=== PATIENT | female | born 1955 | race Caucasian/White ===

== ENCOUNTER 2019-07-15 08:37 | Outpatient (CLI) | payer MEDICARE, MEDICAID, SELFPAY ==
--- NOTE | 2019-07-15 | ECG_ITS ---
Measurements Intervals Smiley Rate: 56 P: 48 MS: 189 QRS: 4 QRSD: 92 T: 53 QT: 449 QTc: 435 Interpretive Statements SINUS BRADYCARDIA VENTRICULAR PREMATURE COMPLEXES LOW QRS VOLTAGE IN PRECORDIAL LEADS CANNOT RULE OUT SEPTAL INFARCT, AGE INDETERMINATE BASELINE ARTIFACT- II, III, AVR, AVF, V1-V2 ABNORMAL ECG Electronically Signed On 07-15-2019 9:46:40 LEGAL ARBITRATOR by Zheng Myers D.O.
[2019-07-15 09:20] LABS: Hematocrit 36.1 % (37.0-47.0); Hemoglobin 11.5 g/dL (12.0-15.0)
[2019-07-15 09:30] LABS: Hemoglobin A1C 6.7 % (<5.7)
[2019-07-15 09:32] LABS: Albumin Level 4.1 g/dL (3.5-5.1); Estimated Glomerular Filt Rate > 60; Glucose 101 mg/dL (65-105)
[2019-07-15 09:38] LABS: Urine Cotinine NEGATIVE
== END 2019-07-15 08:38 | disposition home or self-care (01) ==
LOC: ANHLAB 08:41
PROVIDERS: PCP Internal Medicine; Visit Provider Orthopaedic Surgery
DX: N18.3 Chronic kidney disease, stage 3 (moderate) (principal); E11.9 Type 2 diabetes mellitus without complications; I12.9 Hypertensive chronic kidney disease with stage 1 through stage 4 chronic kidney disease, or unspecified chronic kidney disease; E78.9 Disorder of lipoprotein metabolism, unspecified; R94.31 Abnormal electrocardiogram [ECG] [EKG]
CPT/HCPCS: 36415; 80307; 82040; 82565; 82947; 83036; 85014; 85018; 93005

== ENCOUNTER 2019-07-29 10:47 | Outpatient (CLI) | payer MEDICARE, MEDICAID, SELFPAY ==
[2019-07-29 11:20] LABS: Basophils Percent Auto 0.5 % (0.2-1.2); Eosinophils Absolute Auto 0.2 K/mm3 (0-0.3); Eosinophils Percent Auto 3.5 % (0-4.4); Hematocrit 36.5 % (37.0-47.0); Hemoglobin 11.6 g/dL (12.0-15.0); Lymphocytes Absolute Auto 1.82 K/mm3 (0.9-3.2); Lymphocytes Percent Auto 30.5 % (18.3-44.2); Mean Corpuscular HGB Conc 31.8 g/dl (32-36); Mean Corpuscular Hemoglobin 30.3 pg (26-34); Mean Corpuscular Volume 95.3 fl (80-100); Mean Platelet Volume 10.4 fl (7.4-10.4); Monocytes Absolute Auto 0.5 K/mm3 (0.1-0.6); Monocytes Percent Auto 8.7 % (2.6-8.5); Neutrophils Absolute Auto 3.4 K/mm3 (1.3-6.7); Neutrophils Percent Auto 56.8 % (45.5-73.1); Platelet Count Result 187 k/mm3 (150-375); Red Blood Count 3.83 M/mm3 (4.2-5.4); Red Cell Distribution Width 12.9 % (11.5-14.5)
[2019-07-29 12:01] LABS: Alanine Aminotransferase 23 U/L (4-35); Albumin Level 4.1 g/dL (3.5-5.1); Alkaline Phosphatase 115 U/L (38-126); Aspartate Amino Transferase 32 U/L (14-36); Bilirubin,Total 0.8 mg/dL (0.2-1.3); Blood Urea Nitrogen 16 mg/dL (7-17); Calcium 9.2 mg/dL (8.4-10.2); Carbon Dioxide 29 mmol/L (22-30); Chloride 100 mmol/L (98-107); Estimated Glomerular Filt Rate > 60; Glucose 116 mg/dL (65-105); Potassium 3.7 mmol/L (3.4-5.0); Sodium 138 mmol/L (137-145)
[2019-07-29 12:02] LABS: Add Urine Microscopic? YES; Appearance Urine Clear (Clear); Bilirubin Urine Negative (Negative); Blood Urine Negative (Negative); Color Urine Yellow (Yellow); Glucose Urine UA Negative (Negative); Ketones Urine Negative (Negative); Leukocyte Esterase Ur 2+ LEU/UL (Negative); Mucus Urine Rare /lpf; Nitrate Urine Negative (Negative); Protein Urine Negative (Negative); RBC Urine 0-2 /hpf (0-2); Specific Grav Ur 1.013 (1.001-1.035); Squamous Epithelial Cell Urine Moderate /hpf (Few); Transitional Epi Cells Urine Rare /hpf (None Seen); Urobilinogen Urine Negative mg/dL (<2.0); WBC Urine 21-30 /hpf
== END 2019-07-29 10:48 | disposition home or self-care (01) ==
LOC: ANHLAB 10:57
PROVIDERS: PCP Internal Medicine; Visit Provider Nurse Practitioner
DX: R40.20 Unspecified coma (principal)
CPT/HCPCS: 36415; 80053; 81001; 84443; 85025; 87077; 87086; 87088

== ENCOUNTER 2019-08-27 06:54 | Outpatient (CLI) | payer MEDICARE, MEDICAID, SELFPAY ==
--- NOTE | 2019-08-27 07:24 | ECHO_ITS ---
Patient Info Name: Sonam Norman Age: 64 years : 1955 Gender: Female Ht: 62 in Wt: 200 lbs BSA: 2.04 m2 HR: 63 bpm BP: 138 / 65 mmHg Technical Quality: Good Exam Date: 08/27/2019 8:23 AM Exam Location: [facility] Patient Status: Outpatient Admit Date: 08/27/2019 Staff Ordering Physician: Melany Matson Machine Boss: Alize Cazares RDCS Attending Provider: Melany Matson Referring Physician: Huyen HALL; Exam Type: CA echo doppler color flow Study Info Indications R40.20 - UNSPECIFIED COMA Complete two-dimensional, color flow and Doppler transthoracic echocardiogram is performed. Summary 1. Left ventricular chamber dimension is normal. 2. Left ventricular systolic function is normal, estimated at 60-65%. 3. The left ventricular diastolic function is abnormal. 4. E/e' 20 is elevated. 5. There is mild aortic valve sclerosis. 6. The mitral valve has moderately calcified annulus. 7. There is mild mitral valve regurgitation. 8. There is mild tricuspid valve regurgitation. 9. No pulmonary hypertension, estimated pulmonary arterial systolic pressure is 36 mmHg. Left Ventricle E/e' 20 is elevated. Left ventricular chamber dimension is normal. Left ventricular systolic function is normal, estimated at 60-65%. The left ventricular diastolic function is abnormal. Right Ventricle Right ventricular chamber dimension is normal. Right ventricular systolic function is normal. Left Atria Left atrial chamber dimension is normal. Right Atria Right atrial chamber dimension is normal. Aortic Valve The aortic valve is probable trileaflet. There is mild aortic valve sclerosis. There is no aortic valve stenosis. There is no aortic valve regurgitation. Pulmonic Valve There is no pulmonic regurgitation. Mitral Valve The mitral valve has moderately calcified annulus. There is no mitral valve stenosis. There is mild mitral valve regurgitation. Tricuspid Valve There is mild tricuspid valve regurgitation. No pulmonary hypertension, estimated pulmonary arterial systolic pressure is 36 mmHg. Pericardium/Pleural There is no pericardial effusion. Inferior Vena Cava Normal inferior vena cava with >50% collapse upon inspiration consistent with normal right atrial pressure, 5 mmHg. Aorta The aortic root size at the sinus of Valsalva is normal. Left Ventricular Outflow Tract Name Value Normal LVOT 2D LVOT Diameter 2.0 cm LVOT Doppler LVOT Peak Gradient 7 mmHg LVOT Mean Gradient 3 mmHg LVOT VTI 31 cm LVOT VTI/AV VTI Ratio 0.9 LVOT Stroke Volume 92 ml LVOT CO 5.6 l/min LVOT CI 2.8 l/min/m2 Pulmonic Valve Name Value Normal RVOT Doppler
--- NOTE | 2019-08-27 07:30 | NEURO_ITS ---
TEST: ELECTROENCEPHALOGRAM DIAGNOSIS: LOSS OF CONSCIOUSNESS PATIENT NUMBER: [id number] EEG NUMBER: [id number] RECORDING DATE: 08/27/19 CLINICAL HISTORY: Patient reports she has been having episodes of not remembering parts of her day. CONDITION OF RECORDING: Awake, drowsy and sleep EEG DESCRIPTION: Most of the EEG is done during drowsiness and sleep. During very brief periods of wakefulness low voltage beta activity is seen mixed with intermittent 6-7hz theta activity. Bilateral symmetrical sleep activity is seen during sleep. Intermittent 5-7hz theta with intermittent 2-3hz delta activity is seen. Photic stimulation produced normal drive. Nonparoxysmal. Nonfocal. Nonlateralizing IMPRESSION: Questionably abnormal record due to the presence of the bi- hemispheric theta and delta activity. Clinical correlation recommended as this tracing was done mainly in drowsiness and sleep. [facility]
--- NOTE | 2019-09-02 12:41 | WPDHOLTEREM ---
Holter/Event Monitor Holter/Event Monitor Date of procedure: 08/27/19 Procedure Type: 48 hour holter monitor Conclusion: 1. 48 hour holter monitor on 08/27/19. 2. Underlying rhythm is sinus rhythm. HR range 53-94 bpm; average HR 67 bpm. 3. There are 67 premature supraventricular complexes, 1 supraventricular couplet and 1 supraventricular triplet. No supraventricular tachycardia. 4. There are 11784 premature ventricular complexes, 75 ventricular bigeminy and 460 ventricular trigeminy. No ventricular tachycardia. 5. No sinoatrial or atrioventricular blocks. No significant pauses greater than 2 seconds. 6. No symptoms available for correlation.
== END 2019-08-27 06:55 | disposition home or self-care (01) ==
LOC: ANHNEURO 07:04
PROVIDERS: PCP Internal Medicine; Visit Provider Nurse Practitioner
DX: R40.20 Unspecified coma (principal); I34.0 Nonrheumatic mitral (valve) insufficiency; I35.1 Nonrheumatic aortic (valve) insufficiency; I36.1 Nonrheumatic tricuspid (valve) insufficiency
CPT/HCPCS: 93225; 93226; 93306; 95816

== ENCOUNTER 2019-09-24 07:22 | Outpatient (CLI) | payer MEDICARE, MEDICAID, SELFPAY ==
--- NOTE | ~2019-09-24 | NM_ITS ---
EXAMINATION: NM ronnell stress w perfusion DATE: 09/24/2019 10:14 INDICATION: Dyspnea TECHNIQUE: Rest images were obtained following intravenous administration of mCi Tc99m tetrofosmin (M yoview). The patient was infused intravenously with Lexiscan (Regadenoson). Then, mCi Tc99m tetrofosm in (Myoview) was administered intravenously, and stress images were obtained. Data was reconstructed into short axis and horizontal and vertical long axis SPECT images. Gated SPECT images were also obta ined. COMPARISON: None. FINDINGS: There is likely breast attenuation artifact along the anterior wall, relatively mild on the stress images but which significantly increases on the rest images. There is no definite reversible or fixed perfusion abnormality to suggest ischemia or infarction. There is normal left ventricular c hamber size, wall motion and ejection fraction. Left ventricular ejection fraction measures >70%. IMPRESSION: 1. Normal myocardial perfusion at rest and during stress. 2. Left ventricular ejection fraction measuring >70%. Reviewed, dictated and finalized at location A.
--- NOTE | 2019-09-24 07:33 | EST_ITS ---
Patient Info Name: Sonam Norman Age: 64 years : 1955 Gender: Female Ht: 62 in Wt: 200 lbs BSA: 2.04 m2 Exam Date: 09/24/2019 8:50 AM Exam Location: [facility] Stress Patient Status: Outpatient Admit Date: 09/24/2019 Staff Ordering Physician: Zheng Myers DO Attending Provider: Zheng Myers DO Exercise Technologist: Alize Cazares RDCS Exercise Physician: Zheng Myers DO Exam Type: CA stress ronnell w NM Study Info Indications R06.09 - Other forms of dyspnea A regadenoson stress test was performed. Summary 1. 1. Negative lexiscan stress test for ischemic ST changes by ECG criteria. 2. 2. Stable hemodynamics throughout the test. 3. 3. Nuclear scan to follow and will be reported separately. Please correlate with it. 4. 4. Patient informed of the above results. Protocol: Lexiscan Stress ECG Details Stage: REST Duration (min): 5 min : 45 sec HR (bpm): 54 SBP (mmHg): 126 DBP (mmHg): 64 Stage: REST Duration (min): 10 min : 7 sec HR (bpm): 54 SBP (mmHg): 126 DBP (mmHg): 64 Stage: STAGE 1 Duration (min): 0 min : 59 sec HR (bpm): 60 SBP (mmHg): 127 DBP (mmHg): 67 Stage: RECOVERY Duration (min): 1 min : 0 sec HR (bpm): 69 SBP (mmHg): 127 DBP (mmHg): 67 Stage: RECOVERY Duration (min): 2 min : 0 sec HR (bpm): 69 SBP (mmHg): 118 DBP (mmHg): 64 Stage: RECOVERY Duration (min): 3 min : 0 sec HR (bpm): 67 SBP (mmHg): 119 DBP (mmHg): 60 Stage: RECOVERY Duration (min): 3 min : 23 sec HR (bpm): 66 SBP (mmHg): 119 DBP (mmHg): 60 Rest HR: 54 bpm Peak HR: 70 bpm Rest Sys BP: 126 mmHg Peak Sys BP: 127 mmHg Max Pred HR: 158 bpm % Max Pred HR: 44 % Target HR: 134 bpm Max RPP: 8,890 bpm*mmHg Termination Reason: Completed protocol Cardiac Symptoms: Shortness of breath Total Time: 1 min : 0 sec Rest Poe BP: 64 mmHg Peak Poe BP: 67 mmHg Total Dose: 0.4 mg Resting ECG Sinus rhythm, PVC's, low voltage in precordial leads. Stress ECG No ST changes. Arrhythmias None. Report Signatures
== END 2019-09-24 07:23 | disposition home or self-care (01) ==
LOC: ANHCARD 07:24
PROVIDERS: PCP Internal Medicine; Visit Provider Internal Medicine Cardiovascular Disease
DX: R06.00 Dyspnea, unspecified (principal)
CPT/HCPCS: 78452; 93017; A9502; J2785

== ENCOUNTER 2019-11-07 09:09 | Outpatient (CLI) | payer MEDICARE, MEDICAID, SELFPAY ==
--- NOTE | ~2019-11-07 | MR_ITS ---
EXAMINATION: MR brain/brain stem wo con DATE: 11/07/2019 10:43 CDT INDICATION: Memory loss TECHNIQUE: Magnetic resonance imaging (MRI) of the brain and brainstem was performed without intraven ous contrast. Sequences included sagittal and axial T1-weighted SE, axial diffusion-weighted FS SE, a xial T2*-weighted GRE, axial T2-weighted FLAIR Propeller, and axial T2-weighted Propeller. Apparent d iffusion coefficient (ADC) maps were created. COMPARISON: MRI dated 03/15/2019 FINDINGS: The brain volume and ventricular system are within normal limits. The brain parenchymal si gnal intensity pattern and peters/white matter is normal and there is no evidence of hemorrhage, space occupying masses or infarctions. There are scattered mild periventricular and subcortical white matte r changes, most likely related to small vessel ischemic disease (microangiopathy). The flow signal voids of the major arterial structures about the [place] and within the el r dural venous sinuses appear grossly unremarkable and patent. The seventh and eighth cranial nerve complexes are normal. The mid sagittal image demonstrates a normal craniovertebral junction and omar us callosum. The paranasal sinuses are grossly unremarkable. IMPRESSION: 1: No acute intracranial abnormality. 2: Chronic age-related findings. Reviewed, dictated and finalized at location A.
== END 2019-11-07 09:10 | disposition home or self-care (01) ==
PROVIDERS: PCP Internal Medicine; Visit Provider Psychiatry & Neurology Neurology
DX: R41.3 Other amnesia (principal)
CPT/HCPCS: 70551

== ENCOUNTER 2019-11-09 12:32 | Outpatient (CLI) | payer MEDICARE, MEDICAID, SELFPAY ==
[2019-11-09 13:25] LABS: Hematocrit 34.1 % (37.0-47.0); Hemoglobin 11.2 g/dL (12.0-15.0); Mean Corpuscular HGB Conc 32.8 g/dl (32-36); Mean Corpuscular Hemoglobin 30.4 pg (26-34); Mean Corpuscular Volume 92.7 fl (80-100); Mean Platelet Volume 10.2 fl (7.4-10.4); Platelet Count Result 192 k/mm3 (150-375); Red Blood Count 3.68 M/mm3 (4.2-5.4); Red Cell Distribution Width 12.7 % (11.5-14.5); White Blood Count 7.5 K/mm3 (4.5-10.0)
[2019-11-09 13:40] LABS: Alanine Aminotransferase 22 U/L (4-35); Albumin Level 4.2 g/dL (3.5-5.1); Alkaline Phosphatase 106 U/L (38-126); Aspartate Amino Transferase 40 U/L (14-36); Bilirubin,Total 0.7 mg/dL (0.2-1.3); Blood Urea Nitrogen 20 mg/dL (7-17); Calcium 9.3 mg/dL (8.4-10.2); Carbon Dioxide 33 mmol/L (22-30); Chloride 97 mmol/L (98-107); Estimated Glomerular Filt Rate > 60; Glucose 120 mg/dL (65-105); Potassium 3.8 mmol/L (3.4-5.0); Sodium 136 mmol/L (137-145)
[2019-11-12 11:47] LABS: Vitamin B6 39.6 ng/mL (2.1-21.7)
[2019-11-13 11:36] LABS: Vitamin B1 76 nmol/L (8-30)
== END 2019-11-09 12:33 | disposition home or self-care (01) ==
PROVIDERS: PCP Internal Medicine; Visit Provider Psychiatry & Neurology Neurology
DX: R41.3 Other amnesia (principal)
CPT/HCPCS: 36415; 80053; 82607; 84207; 84425; 85027; 86038; 86039

== ENCOUNTER 2019-12-03 19:54 | Emergency (ER) | payer MEDICARE, MEDICAID, SELFPAY ==
--- NOTE | ~2019-12-03 | CT_ITS ---
EXAMINATION: CT brain wo con DATE: 12/03/2019 20:27 INDICATION: Head injury. TECHNIQUE: Computed tomography (CT) of the head was performed without intravenous contrast. The mA wa s adjusted according to patient size. Iterative reconstruction technique was employed. The dose-lengt h product was 605.33 mGy-cm. COMPARISON: Head CT 02/12/2019 FINDINGS: There are scattered areas of low attenuation in the cerebral white matter, which is within normal limits for the patient's age. There is no intracranial hemorrhage, acute infarction, or abnor mal intracranial mass lesion. The ventricles are normal in size. There is mild mucosal thickening in the ethmoid sinuses. The mastoid air cells are normal. The orbits are normal. There is a left frontal scalp laceration. IMPRESSION: 1. Normal aging brain. Reviewed, dictated and finalized at location A. IMPRESSION: 1. Normal aging brain.
[2019-12-03 19:56] VITALS: BP 178/53; PULSE 74; RESP 16; TEMP 36.5; O2SAT 95
--- NOTE | 2019-12-03 20:02 | ED.HEATRA ---
HPI - Head Injury General Chief complaint: Head Injury Stated complaint: fall, hit head Time Seen by Provider: 12/03/19 20:02 History of Present Illness HPI Narrative: Tripped over her own feet and fell forward striking her head on the bathroom counter. Reporting 8/10 pain in her head. Sustained laceration above the left eyebrow. No LOC. No blood thinners. Related Data Home Medications Medication Instructions Recorded Confirmed fluoxetine 10 mg capsule 10 mg PO DAILY 06/22/19 11/04/19 insulin aspart U-100 100 unit/mL 20 unit SUB-Q TID 06/22/19 11/04/19 subcutaneous solution insulin detemir U-100 100 unit/mL 100 unit SUB-Q DAILY 06/22/19 11/04/19 (3 mL) subcutaneous pen furosemide 40 mg tablet 20 mg PO QAM tablet 09/21/19 11/04/19 Allergies Allergy/AdvReac Type Severity Reaction Status Date / Time erythromycin base Allergy Unknown Unknown Verified 11/04/19 07:56 Review of Systems Review of Systems: All systems reviewed & are unremarkable except as noted in HPI and below Constitutional: Constitutional: Denies weakness ENT: Denies dizziness PMFSH Past Medical History Medical History Chronic kidney disease, stage 3 Depression Hypertension Localized osteoarthritis of left knee Other asthma Other hyperlipidemia Parkinson disease Type 2 diabetes mellitus without complication, with halfway current use of insulin pump Vitamin D deficiency, unspecified Surgical History Surgical History History of bariatric surgery History of cholecystectomy History of tubal ligation Family History Family History Sibling Hypertension Patient's brother is in good health Family history of diabetes mellitus in first degree relative Diabetes mellitus Malignant neoplasm of throat sister Mother Patient's mother is in good health Father Family history of lung cancer Other Family history of malignant neoplasm Social History Social History Smoking status: Former smoker Smoking end date: 05/19/96 Alcohol intake: never Exam Const: General: alert and ill appearing chronically Nutritional Appearance: obese Orientation/consciousness: patient oriented x3 HENMT: Other: 6 cm stelate full thickness laceration to the left eyebrow Eyes: Conjunctivae: conjunctivae normal Pupils: Equal, round and reactive pupils present EOM: EOMs intact bilaterally Resp: Effort & Inspection: normal respiratory effort Auscultation: clear to auscultation bilaterally Cardio: Rate: regular rate Rhythm: regular rhythm Neuro: General: patient oriented x3 and moves all extremities Cranial nerves: Yes CN's II-XII intact bilaterally Extrem: General: normal to inspection Course Vital Signs Vital signs: Vital Signs Temperature 36.5 C 12/03/19 19:56 Pulse Rate 74 12/03/19 19:56 Respiratory Rate 16 12/03/19 19:56 Blood Pressure 178/53 H 12/03/19 19:56 Pulse Oximetry 95 12/03/19 19:56 Temperature 36.5 C 12/03/19 19:56 Pulse Rate 71 12/03/19 21:55 Respiratory Rate 18 12/03/19 21:55 Blood Pressure 167/59 H 12/03/19 21:55 Pulse Oximetry 95 12/03/19 21:55 Procedures Laceration Laceration 1: Date: 12/03/19 Side (If applicable): left Size (cm): 6 Description: stellate Local Anesthetic: lidocaine 1% and with epi Amount of anesthesia used (mL): 7 Pre-repair: wound explored and irrigated ====== Skin Level ====== Skin layer closed with: other (Fast gut) Size (cm): 5-0 Number of sutures: 10 Technique: simple, interrupted ====== Subcutaneous Layer ====== Subcutaneous layer closed with: vicryl Size: 5-0 Number of sutures: 5 Technique: simple, interrupted
[2019-12-03] MEDS: LIDO 1%/EPINEPHRINE 1:100,000 20 ML VIAL 5 ML INFILTRATE (20:17)
[2019-12-03 21:55] VITALS: BP 167/59; PULSE 71; RESP 18; O2SAT 95
== END 2019-12-03 21:57 | disposition home or self-care (01) ==
PROVIDERS: Emergency Provider Emergency Medicine; PCP Internal Medicine
DX: S01.112A Laceration without foreign body of left eyelid and periocular area, initial encounter (principal); E11.22 Type 2 diabetes mellitus with diabetic chronic kidney disease; I13.10 Hypertensive heart and chronic kidney disease without heart failure, with stage 1 through stage 4 chronic kidney disease, or unspecified chronic kidney disease; N18.3 Chronic kidney disease, stage 3 (moderate); Z87.891 Personal history of nicotine dependence; Z79.4 Long term (current) use of insulin; Z96.41 Presence of insulin pump (external) (internal); F32.9 Major depressive disorder, single episode, unspecified; M17.12 Unilateral primary osteoarthritis, left knee; G20 Parkinson's disease; E78.49 Other hyperlipidemia; E55.9 Vitamin D deficiency, unspecified; W01.198A Fall on same level from slipping, tripping and stumbling with subsequent striking against other object, initial encounter
CPT/HCPCS: 12014; 12053; 70450; 99284

== ENCOUNTER 2020-05-01 14:23 | Outpatient (CLI) | payer MEDICARE, MEDICAID, SELFPAY ==
--- NOTE | ~2020-05-01 | US_ITS ---
EXAMINATION: US carotid duplex BI DATE: 05/01/2020 15:35 INDICATION: Memory loss. Symptoms and signs of the circulatory system. TECHNIQUE: Grayscale, color Doppler, and pulsed Doppler images of the cervical carotid arteries were obtained. The degree of vessel stenosis is placed in one of the following categories: normal, <50%, 5 0-69%, >=70% but less than near-occlusion, near-occlusion, or total occlusion. Note that percent sten osis relative to normal distal artery lumen diameter is indirectly measured from velocity measurement s as described by Zeeshan, et al. Radiology 2003; 229:340-346. Notes: Normal: Peak systolic velocity <125 centimeters/sec and no plaque <50%. Peak systolic velocity <125 ( EDV <40; ICA/CCA PSV ratio <2.0; used these factors only a tandem lesions or low cardiac output or co ntralateral disease) 50-69 %: PSV 125-230 (EDV 40-100; ratio 2-4) >= 70% but less than near occlusion: PSV greater than 230 (EDV > 100; ratio> 4.0) Near Occlusion: PSV that is variable; markedly narrowed lumen Occlusion: Absent flow on color/spectral Doppler and no lumen on peters scale. COMPARISON: None. FINDINGS: RIGHT: The right common carotid artery (CCA) peak systolic velocity (PSV) is 116 cm/s. The right internal ca rotid artery (ICA) PSV is 108 cm/s. The right ICA end-diastolic velocity (EDV) is 33 cm/s. The right ICA/CCA PSV ratio is 0.9. The external carotid artery (ECA) PSV is 78 cm/s. There is antegrade flow i n the right vertebral artery. LEFT: The left CCA PSV is 110 cm/s. The left ICA PSV is 116 cm/s. The left ICA EDV is 29 cm/s. The left ICA /CCA PSV ratio is 1.06. The ECA PSV is 75 cm/s. There is antegrade flow in the left vertebral artery . IMPRESSION: 1. Less than 50% stenosis in the right internal carotid artery by sonographic criteria. 2. Less than 50% stenosis in the left internal carotid artery by sonographic criteria. Reviewed, dictated and finalized at location A. ICAL CORSETIER IMPRESSION: 1. Less than 50% stenosis in the right internal carotid artery by sonographic c salud. 2. Less than 50% stenosis in the left internal carotid artery by sonographic gin [place].
== END 2020-05-01 14:24 | disposition home or self-care (01) ==
PROVIDERS: PCP Internal Medicine; Visit Provider Internal Medicine
DX: R09.89 Other specified symptoms and signs involving the circulatory and respiratory systems (principal); I65.23 Occlusion and stenosis of bilateral carotid arteries
CPT/HCPCS: 93880

== ENCOUNTER 2020-09-19 08:50 | Outpatient (CLI) | payer MEDICARE, MEDICAID, SELFPAY ==
--- NOTE | ~2020-09-19 | US_ITS ---
EXAMINATION: US abdomen complete DATE: 09/19/2020 09:18 INDICATION: Liver disease, fatty liver TECHNIQUE: Multiple grayscale and Doppler ultrasound images of the abdomen were obtained. COMPARISON: None available FINDINGS: The examination is limited by the patient's body habitus. Bowel gas obscures visualization of the pancreas. The visualized portions of the pancreas are unremarkable. The liver demonstrates inc reased echogenicity, heterogenous echotexture, and decreased through transmission. There is questiona ble nodularity of the liver surface. Normal hepatopetal flow in the main portal vein. The gallbladder is surgically absent. The normal common bile duct measures 6 mm. The visualized portions of the aort a and inferior vena cava are normal. The right kidney measures 10.1 x 5.5 x 6.3 cm. The left kidney measures 9.9 x 6.5 x 4.7 cm. The kidne ys demonstrate normal parenchymal echogenicity. There is no hydronephrosis. The spleen is normal in a ppearance and measures 11.1 cm. IMPRESSION: 1. Diffuse hepatic steatosis. Possible cirrhosis. Reviewed, dictated and finalized at location A.
== END 2020-09-19 08:51 | disposition home or self-care (01) ==
LOC: ANHIMG 08:53
PROVIDERS: PCP Internal Medicine
DX: K76.0 Fatty (change of) liver, not elsewhere classified (principal)
CPT/HCPCS: 76700

== ENCOUNTER 2021-01-24 09:46 | Outpatient (CLI) | payer MEDICARE, MEDICAID, SELFPAY ==
--- NOTE | ~2021-01-24 | XR_ITS ---
EXAMINATION: XR lumbar spine 2-3V EXAM DATE: 01/24/2021 10:19 INDICATION: M54.9 - Dorsalgia, unspecified; mid back pain x 2 mos; nki. TECHNIQUE: Lumber spine frontal, lateral, lateral L5-S1 projections for interpretation. There is no prior study for comparison. FINDINGS: Moderate loss of the disc height L2-3 and L3-4, mild to moderate at the 2 levels below. No spondylolysis suspected. There is moderate lower lumbar, mild to moderate mid lumbar facet arthropat hy. There are no acute fractures identified. Mild to moderate aortic arteriosclerosis. The vertebral bodies are aligned in the AP dimension. Mild lumbar dextroscoliosis. Sacrum, sacroiliac joints, sacra l arcuate lines are intact. There are cholecystectomy clips. IMPRESSION: 1. Moderate lumbar disc disease and lower lumbar facet arthropathy. 2. Mild dextroscoliosis. 3. No acute findings. Reviewed, dictated and finalized at location A.
== END 2021-01-24 09:47 | disposition home or self-care (01) ==
LOC: ANHIMG 09:54
PROVIDERS: PCP Internal Medicine; Visit Provider Internal Medicine
DX: M51.9 Unspecified thoracic, thoracolumbar and lumbosacral intervertebral disc disorder (principal); M47.816 Spondylosis without myelopathy or radiculopathy, lumbar region; E11.9 Type 2 diabetes mellitus without complications; I10 Essential (primary) hypertension; Z79.4 Long term (current) use of insulin
CPT/HCPCS: 72100

== ENCOUNTER 2021-02-14 10:36 | Outpatient (CLI) | payer MEDICARE, MEDICAID, SELFPAY ==
--- NOTE | ~2021-02-14 | XR_ITS ---
EXAMINATION: XR chest 2V 02/14/2021 11:06 INDICATION: Chest pain PROCEDURE: 2 view chest COMPARISON: 11/04/2006 FINDINGS: The lungs are clear. The cardiomediastinal silhouette is within normal limits. There are no pleural effusions. There is no pneumothorax suspected. IMPRESSION: 1: NO ACUTE CARDIOPULMONARY DISEASE. Reviewed, dictated and finalized at location A.
== END 2021-02-14 10:37 | disposition home or self-care (01) ==
PROVIDERS: PCP Internal Medicine; Visit Provider Nurse Practitioner
DX: R07.89 Other chest pain (principal)
CPT/HCPCS: 71046

== ENCOUNTER 2021-04-19 08:55 | Outpatient (CLI) | payer BC, SELFPAY ==
--- NOTE | ~2021-04-19 | DEXA_ITS ---
Bone Density Report Name: Sonam Norman Age: 65 Sex: Female Ethnicity: White Date of : 1955 Indication: postmenopausal; height loss; asthma or emphysema; Referring Provider: Melany Matson Study: Bone densitometry was performed. Exam Date: April 19, 2021 Accession number: [id number] Bone Density: Region BMD T-score Z-score Classification AP Spine (L1, L2) 1.148 1.5 3.1 Normal Femoral Neck (Left) 0.715 -1.2 0.2 Osteopenia Total Hip (Left) 0.994 0.4 1.6 Normal Total Hip Bilateral Avg 1.013 0.6 1.8 Normal Femoral Neck (Right) 0.827 -0.2 1.3 Normal Total Hip (Right) 1.030 0.7 1.9 Normal World Health Organization criteria for BMD impression classify patients as: Normal (T-score at or above -1.0), Osteopenia (T-score between -1.0 and -2.5), or Osteoporosis (T-score at or below -2.5). 10-year Fracture Risk(1): Major Osteoporotic Fracture 7.1% Hip Fracture 0.5% Reported Risk Factors: [place] (), Neck BMD=0.715, BMI=41.0 (1) FRAX(R) Version 3.08. Fracture probability calculated for an untreated patient. Fracture probability may be lower if the patient has received treatment. Previous Exams: Region Exam Age BMD T-score BMD Change BMD Change Date g/cm2 vs Baseline vs Previous AP Spine(L1, L2) 04/19/2021 65 1.148 1.5 -0.024(-2.1%)* -0.024(-2.1%)* 09/11/2018 63 1.173 1.8 Total Hip(Left) 04/19/2021 65 0.994 0.4 -0.099(-9.1%)* -0.099(-9.1%)* 09/11/2018 63 1.094 1.2 Total Hip(Right) 04/19/2021 65 1.030 0.7 -0.082(-7.4%)* -0.082(-7.4%)* 09/11/2018 63 1.111 1.4 *Denotes significance at 95% confidence level, LSC for AP Spine = 0.022 g/cm2, LSC for Total Hip = 0.027 g/cm2 Clinical Information Provided by Patient: Has the following medical conditions: Asthma or Emphysema Patient maximum height was 62 Menopause Age: 48 No regular weight bearing exercise Does not regularly consume dairy products Onset of menses at age 17 Number of children 2 Impression: The patient has low bone mass, based on the Left Femoral Neck T-score. The patient has an estimated ten-year risk of hip fracture of 0.5% and an estimated ten-year risk of major fracture of 7.1%, based on the WHO FRAX algorithm. The BMD for the AP Spine(L1, L2) decreased, changing by -2.1% since the last DXA exam. The BMD for the Total Hip(Left) decreased, changing by -9.1% since the last DXA exam. The BMD for the Total Hip(Right) decreased, changing by -7.4%
--- NOTE | ~2021-04-19 | MM_ITS ---
EXAMINATION: MM screening sonal BI w adrián HISTORY: Screening mammogram TECHNIQUE: Craniocaudal and mediolateral oblique 3-D tomosynthesis images were obtained and synthetic 2-D images were generated. CAD analysis was submitted and interpreted. COMPARISON: 10/30/2018 diagnostic right mammogram and limited right breast ultrasound 09/11/2018, 11/29/2015 bilateral screening mammogram examinations BREAST PARENCHYMAL COMPOSITION: There are scattered areas of fibroglandular density. FINDINGS: Numerous bilateral benign calcifications are noted, particularly secretory type calcificati ons. There is no evidence of suspicious mass, calcification, or architectural distortion to suggest m alignancy in either breast. There has been no suspicious interval change. IMPRESSION: 1. No mammographic evidence of malignancy. 2. Recommend routine screening mammography in one year. BI-RADS Category 2: Benign finding(s). Reviewed, dictated and finalized at location A. T REVIEWER
== END 2021-04-19 08:56 | disposition home or self-care (01) ==
LOC: ANHIMG 08:57
PROVIDERS: PCP Internal Medicine; Visit Provider Nurse Practitioner
DX: Z12.31 Encounter for screening mammogram for malignant neoplasm of breast (principal); Z78.0 Asymptomatic menopausal state; M85.852 Other specified disorders of bone density and structure, left thigh
CPT/HCPCS: 77063; 77067; 77080

== ENCOUNTER 2021-09-03 13:49 | Observation (INO) | payer MEDICARE, MEDICAID, SELFPAY ==
[2021-09-03] VITALS (8 sets, daily range): BP systolic 132–153; BP diastolic 60–87; PULSE 61–76; RESP 15–18; TEMP 36.1–36.9; O2SAT 96–100; BMI 40.8
--- NOTE | ~2021-09-03 | US_ITS ---
EXAMINATION: US venous doppler UE RT DATE: 09/03/2021 16:17 INDICATION: Right upper extremity pain. TECHNIQUE: Grayscale ultrasound images without and with compression and Doppler ultrasound images of the right upper extremity veins were obtained. COMPARISON: None. FINDINGS: The visualized portions of the right internal jugular vein, subclavian vein, brachial veins, basilic vein, cephalic vein, radial vein, and ulnar vein are patent. There is thrombus in right axillary vein . IMPRESSION: 1. Deep vein thrombosis involving right axillary vein. I called this result to Oneyda Castellanos. Reviewed, dictated and finalized at location B.
--- NOTE | 2021-09-03 15:44 | ED.EXTPRO ---
HPI - Extremity Problem General Chief complaint: Extremity Problem,Nontraumatic Stated complaint: right arm pain Time Seen by Provider: 09/03/21 14:42 Source: patient Mode of arrival: ambulatory Limitations: no limitations History of Present Illness HPI Narrative: Patient is a 66 y/o female who presents to the ED with c/o burning pain to her right upper extremity. Patient reports she first developed burning pain in her right wrist a few days ago which has since radiated up to her right elbow and right upper arm/axillary region. She states it is a burning. No numbness, tingling, weakness. She has not tried anything for the pain. She called her primary care doctor about this and was referred to the ED for further evaluation. PCP was reportedly concerned for cardiac etiology. Patient denies any chest pain, shortness of breath, nausea, vomiting, fevers, chills. No back pain, neck pain. No wounds, swelling, redness, warmth. Related Data Home Medications Medication Instructions Recorded Confirmed fluoxetine 10 mg capsule 10 mg PO DAILY 06/22/19 05/01/21 furosemide 40 mg tablet 20 mg PO QAM tablet 09/21/19 05/01/21 benztropine 0.5 mg tablet 0.5 mg PO QHS tablet 09/12/20 05/01/21 empagliflozin 10 mg tablet 10 mg PO DAILY 02/14/21 05/01/21 semaglutide 1 mg/dose (2 mg/1.5 1 mg SUBCUT WEEKLY 02/14/21 05/01/21 mL) subcutaneous pen injector Allergies Allergy/AdvReac Type Severity Reaction Status Date / Time erythromycin base Allergy Mild throat Verified 07/19/21 12:48 swelling Review of Systems Review of Systems: CONSTITUTIONAL: Denies fever, chills. CARDIOVASCULAR: Denies chest pain. RESPIRATORY: Denies dyspnea. GASTROINTESTINAL: Denies nausea, vomiting. SKIN: Denies wounds, swelling, redness to RUE. MUSCULOSKELETAL: Reports burning pain to RUE. Denies back pain, joint pain, neck pain. NEUROLOGIC: Denies tingling, numbness, or weakness. All systems reviewed & are unremarkable except as noted in HPI and below PMFSH Past Medical History Medical History Abnormal mammogram Chronic kidney disease, stage 3 Depression Hypertension Localized osteoarthritis of left knee Other asthma Other hyperlipidemia Parkinson disease Vitamin D deficiency, unspecified Surgical History Surgical History History of bariatric surgery History of cholecystectomy History of tubal ligation Family History Family History (Reviewed 05/01/21 @ 10:47 by Tabatha Collier, [facility]) Sibling Hypertension Patient's brother is in good health Family history of diabetes mellitus in first degree relative Diabetes mellitus Malignant neoplasm of throat sister Mother Patient's mother is in good health Father Family history of lung cancer Other Family history of malignant neoplasm Social History Social History Smoking packs per day: 1 Smoking cigarettes per day: 20.0 Years smoked: 5 Smoking pack-years: 5.00 Tobacco type: cigarettes Second hand tobacco smoke exposure: Yes Smoking end date: 05/19/99 Alcohol intake: never Substance use: never Substance use type: does not use Exam Narrative: GENERAL: Well appearing, well-nourished, non-toxic, in no acute distress. HEAD: Normocephalic, atraumatic. NECK: Supple. No adenopathy, no masses. RESPIRATORY: Airway patent, respirations nonlabored. Clear to auscultation bilaterally, no rales, rhonchi, wheezing. CARDIOVASCULAR: Regular rate and rhythm without murmurs, rubs, or gallops. Radial pulses 2+ and equal bilaterally. ABDOMINAL: Soft, nontender, nondistended, no hepatosplenomegaly. Normoactive BS. MUSCULOSKELETAL: Moves all extremities. Strength/ROM/sensation intact without gross deformities. No swelling of right upper extremity. Minimal tenderness in R axillary region. No chest wall tenderness to palpation.
--- NOTE | 2021-09-03 15:46 | ECG_ITS ---
Measurements Intervals [place] Rate: 65 P: 59 SC: 196 QRS: 1 QRSD: 70 T: 64 QT: 412 QTc: 428 Interpretive Statements SINUS RHYTHM LOW QRS VOLTAGE IN PRECORDIAL LEADS [QRS DEFLECTION < 1.0 mV IN CHEST LEADS] CANNOT RULE OUT SEPTAL MYOCARDIAL INFARCTION , OF INDETERMINATE AGE [40+ ms Q WAVE IN V1/V2] ABNORMAL ECG COMPARED TO ECG 07/15/2019 09:30:02 HEART RATE HAS INCREASED AND PVCS NO LONGER APPRECIATED Electronically Signed On 09-03-2021 17:09:06 CDT by Edson Sarmiento M.D.
--- NOTE | 2021-09-03 15:57 | PC.NURSE ---
Pt to U/S via w/ at this time.
[2021-09-03 16:28] LABS: Troponin I < 0.012 ng/mL (0.000-0.034)
[2021-09-03 16:43] LABS: Basophils Absolute Auto 0.1 K/mm3 (0.0-0.1); Basophils Percent Auto 0.6 % (0.2-1.2); Eosinophils Absolute Auto 0.2 K/mm3 (0-0.3); Eosinophils Percent Auto 2.4 % (0-4.4); Hematocrit 45.4 % (37.0-47.0); Hemoglobin 14.5 g/dL (12.0-15.0); Immature Granulocyte Absolute 0.03 K/mm3 (0.00-0.031); Immature Granulocyte Percent A 0.3 % (0-0.5); Lymphocytes Absolute Auto 2.82 K/mm3 (0.9-3.2); Lymphocytes Percent Auto 29.8 % (18.3-44.2); Mean Corpuscular HGB Conc 31.9 g/dl (32-36); Mean Corpuscular Hemoglobin 29.4 pg (26-34); Mean Corpuscular Volume 92.1 fl (80-100); Mean Platelet Volume 10.6 fl (7.4-10.4); Monocytes Absolute Auto 0.7 K/mm3 (0.1-0.6); Monocytes Percent Auto 7.8 % (2.6-8.5); Neutrophils Absolute Auto 5.6 K/mm3 (1.3-6.7); Neutrophils Percent Auto 59.1 % (45.5-73.1); Platelet Count Result 223 k/mm3 (150-375); Red Blood Count 4.93 M/mm3 (4.2-5.4); Red Cell Distribution Width 12.2 % (11.5-14.5); White Blood Count 9.5 K/mm3 (4.5-10.0)
[2021-09-03 16:47] LABS: Anion Gap 9 mmol/L (8-16); Blood Urea Nitrogen 10 mg/dL (7-17); Calcium 9.5 mg/dL (8.4-10.2); Carbon Dioxide 26 mmol/L (22-30); Chloride 102 mmol/L (98-107); Estimated CRCL calculation 86 ml/min; Estimated Glomerular Filt Rate > 60; Glucose 112 mg/dL (65-110); Potassium 3.7 mmol/L (3.4-5.0); Sodium 137 mmol/L (137-145)
[2021-09-03 16:56] LABS: INR 1.1; Prothrombin Time 13.8 Seconds (11.1-14.7)
[2021-09-03 16:57] LABS: Partial Thromboplastin Time 27.1 SECONDS (22.3-36.8)
[2021-09-03] MEDS: ENOXAPARIN 100 MG/ML SYRINGE 98 MG SUB-Q (17:12)
--- NOTE | 2021-09-03 17:15 | PM.IMHP ---
H&P: HPI History of Present Illness Date/Time: 09/03/21 17:15 Chief Complaint: Right arm pain Narrative: Patient is a 66-year-old female with a past medical history of Parkinson's, diabetes, hypertension, depression who presented to the ED with complaints of burning pain in her right arm for the last 3 days. Patient stated that she called her physician her physician told her due to the ED for further treatment. She denies any injury. She stated that the pain started in her wrist and went and crept up her arm into her axilla. She also stated that she has a cough and shortness of breath which happened when she got here. She denies any chest pain, nausea, vomiting, diarrhea, constipation, weakness, fatigue, headaches, numbness and tingling, vision changes. Patient is being admitted to the hospital service under observation Review of Systems Review of Systems: All systems reviewed & are unremarkable except as noted in HPI and below PMFSH Past Medical History Medical History Abnormal mammogram Chronic kidney disease, stage 3 Depression Diabetes Hypertension Localized osteoarthritis of left knee Other asthma Other hyperlipidemia Parkinson disease Vitamin D deficiency, unspecified Surgical History Surgical History History of bariatric surgery History of cholecystectomy History of tubal ligation Family History Family History Sibling Malignant neoplasm of throat sister Diabetes mellitus Family history of diabetes mellitus in first degree relative Patient's brother is in good health Hypertension Father Family history of lung cancer Other Family history of malignant neoplasm Social History Social History (Updated 09/03/21 @ 19:10 by SHREYAS Treviño) Social History: Patient currently lives with her daughter Teri who will be her surrogate. Patient wishes to be a full code at this time and has 7 cats that live with her. Patient stated that they have been trying to get rid of the cats and are currently working on it. Smoking packs per day: 1 Smoking cigarettes per day: 20.0 Years smoked: 5 Smoking pack-years: 5.00 Smoking status: Former smoker Tobacco type: cigarettes Second hand tobacco smoke exposure: Yes Smoking end date: 05/19/99 Alcohol intake: current Drinks per week: 3 Substance use: never Substance use type: does not use Living arrangements: with family Additional living arrangements comments: Who is with her daughter Occupation/Education: retired Gender identity (if verbalized by the patient): Female Sexual Orientation (if Verbalized by the Patient): Straight or Heterosexual Spiritual care concerns: No Agree to blood products: Yes Meds Home Medications and Allergies Home Medications Medication Instructions Recorded Confirmed Type fluoxetine 10 mg capsule 10 mg PO DAILY 06/22/19 09/03/21 History furosemide 40 mg tablet 20 mg PO QAM tablet 09/21/19 09/03/21 History losartan 100 mg tablet 100 mg PO DAILY #90 tablet 10/08/19 09/03/21 Rx blood sugar diagnostic #100 ea 04/21/20 05/01/21 Rx Ventolin HFA 90 mcg/actuation See Rx Instructions .ROUTE 06/14/20 09/03/21 Rx aerosol inhaler .COMPLEX #18 gm NS benztropine 0.5 mg tablet 0.5 mg PO QHS tablet 09/12/20 09/03/21 History insulin detemir U-100 100 unit/mL See Rx Instructions SUB-Q DAILY 11/30/20 09/03/21 Rx (3 mL) subcutaneous pen #15 ml primidone 50 mg tablet 50 mg PO QHS #30 tablet 02/09/21 09/03/21 Rx empagliflozin 10 mg tablet 10 mg PO DAILY 02/14/21 09/03/21 History semaglutide 1 mg/dose (2 mg/1.5 1 mg SUBCUT WEEKLY 02/14/21 09/03/21 History mL) subcutaneous pen injector calcium carbonate 500 mg calcium 500 mg PO DAILY #90 tablet 04/23/21 09/03/21 Rx (1,250 mg) tablet cholecalciferol (vitamin D3) 50 50 mcg PO
--- NOTE | 2021-09-03 18:18 | ADMGEN ---
This patient, Sonam Norman, was admitted to [facility] Room 301-01 at 1800. Patient/family oriented to hospital policies and general routines including ID bracelet, bed and alarms, visiting hours, pain management, procedures, bathroom and other care routines, personal items, smoking policy, room service/diet, and visiting hours. Information on how to activate the Rapid Response Team has been discussed. Patient/Family are encouraged to report perceived risks to care and to ask questions if they do not understand what they are told or what they should do.
[2021-09-03 19:53] LABS: Basophils Absolute Auto 0.1 K/mm3 (0.0-0.1); Basophils Percent Auto 0.6 % (0.2-1.2); Eosinophils Absolute Auto 0.3 K/mm3 (0-0.3); Hematocrit 42.6 % (37.0-47.0); Hemoglobin 13.7 g/dL (12.0-15.0); Immature Granulocyte Absolute 0.01 K/mm3 (0.00-0.031); Immature Granulocyte Percent A 0.1 % (0-0.5); Lymphocytes Absolute Auto 2.68 K/mm3 (0.9-3.2); Lymphocytes Percent Auto 32.4 % (18.3-44.2); Mean Corpuscular HGB Conc 32.2 g/dl (32-36); Mean Corpuscular Hemoglobin 29.7 pg (26-34); Mean Corpuscular Volume 92.4 fl (80-100); Mean Platelet Volume 10.5 fl (7.4-10.4); Monocytes Absolute Auto 0.6 K/mm3 (0.1-0.6); Monocytes Percent Auto 7.1 % (2.6-8.5); Neutrophils Absolute Auto 4.7 K/mm3 (1.3-6.7); Neutrophils Percent Auto 56.8 % (45.5-73.1); Platelet Count Result 189 k/mm3 (150-375); Red Blood Count 4.61 M/mm3 (4.2-5.4); Red Cell Distribution Width 12.2 % (11.5-14.5); White Blood Count 8.3 K/mm3 (4.5-10.0)
[2021-09-03 20:04] LABS: Alanine Aminotransferase 19 U/L (4-35); Albumin Level 4.1 g/dL (3.5-5.1); Alkaline Phosphatase 150 U/L (38-126); Anion Gap 8 mmol/L (8-16); Aspartate Amino Transferase 29 U/L (14-36); Bilirubin,Total 1.2 mg/dL (0.2-1.3); Blood Urea Nitrogen 9 mg/dL (7-17); Calcium 9.1 mg/dL (8.4-10.2); Carbon Dioxide 25 mmol/L (22-30); Chloride 102 mmol/L (98-107); Estimated CRCL calculation 86 ml/min; Estimated Glomerular Filt Rate > 60; Glucose 154 mg/dL (65-110); Potassium 3.6 mmol/L (3.4-5.0); Sodium 135 mmol/L (137-145)
[2021-09-03 20:24] LABS: Glucose Point of Care 197 mg/dl (65-105)
[2021-09-03] MEDS: INSULIN GLARGINE (*BKC) 100 UNITS/ML 30 UNITS SUB-Q (20:41)
[2021-09-03] MEDS: PRIMIDONE 50 MG TABLET PO (20:42)
[2021-09-03] MEDS: BENZTROPINE MESYLATE 0.5 MG TABLET PO (20:42)
[2021-09-04] VITALS: PULSE 63
[2021-09-04 04:00] VITALS: PULSE 60
[2021-09-04 06:00] VITALS: BP 152/69; PULSE 53; RESP 18; TEMP 36.5; O2SAT 97
[2021-09-04] MEDS: ENOXAPARIN 100 MG/ML SYRINGE SUB-Q (06:12)
--- NOTE | 2021-09-04 07:15 | PM.DS ---
DS: Admitting Diagnosis Discharge Date 09/04/21 0715 Admitting Diagnosis DVT in the right axilla DS: Discharge Diagnosis Discharge Diagnosis (1) DVT of axillary vein, acute: Qualifiers: Laterality: right Qualified Code(s): I82.A11 - Acute embolism and thrombosis of right axillary vein Code(s): I82.A19 - Acute embolism and thrombosis of unspecified axillary vein Status: Acute Assessment and Plan: Reported a burning pain in her right arm for the last 3 days Doppler shows a DVT in the right axillary vein Lovenox full dose b.i.d. switched to oral eliquis Pain is minimal at this time Probably secondary to recent COVID about a month ago (2) Type 2 diabetes mellitus, with long-term current use of insulin: Code(s): E11.9 - Type 2 diabetes mellitus without complications; Z79.4 - half-way (current) use of insulin Status: Acute Assessment and Plan: Current glucose 113 Continue home Levemir 50 units BID Insulin sliding scale Hold oral medications for now Accu-Cheks AC and HS Trend glucose Adjust therapy as indicated (3) Hypertension: Code(s): I10 - Essential (primary) hypertension Status: Acute Assessment and Plan: Blood pressure 152/69 Continue home losartan, furosemide 40 mg Trend blood pressure Adjust therapy as indicated (4) Parkinson disease: Code(s): G20 - Parkinson's disease Status: Acute Assessment and Plan: Continue home Abilify and Lamictal Trend symptoms Adjust therapy as indicated DS: Summary Hospital Course Hospital Course: Patient is a 66-year-old female with a past medical history of Parkinson's, diabetes, hypertension, depression who presented to the ED with complaints of burning pain in her right arm for the last 3 days. Doppler found that the patient had a DVT in her right axilla vein. Patient was placed on Lovenox and converted to Eliquis. She denies having any other complaints including chest pain, shortness of breath, nausea, vomiting, diarrhea, constipation, weakness or fatigue. She did state that she is having some wheezes and cough. She also stated that she is a bit tired today. Patient is stable for discharge at this time, including labs and vital signs. Status at Discharge Functional status at discharge: independent ambulation Overall status at discharge: patient is progressing back to baseline Time Spent with Patient Time attestation: Total time spent providing and/or coordinating discharge services:48 minutes Time spent: Greater than 30 minutes Specific discharge activities: Diagnostic testing, chart review, developing a treatment plan, education, care coordination documentation, physical exam, result review Exam Const: General: cooperative, healthy appearing, no acute distress, well developed, alert and awake Nutritional Appearance: well nourished Orientation/consciousness: oriented to person, oriented to place, oriented to time and patient oriented x3 Limitations: no limitations HENMT: Head: normal to inspection Ears: hearing grossly normal bilaterally General nose exam: Normal external nose present Mouth: Yes Normal oral and palatal mucosa present, Yes lip normal and Yes tongue normal Teeth and gingiva: abnormal tooth and associated gingiva and poor dentition Eyes: General: appearance normal, both eyes and all related structures Neck: Neck: normal visual inspection, full ROM, trachea midline and supple Chest: Chest palpation & inspection: normal inspection of the chest Resp: Effort & Inspection: normal respiratory effort and able to speak in complete sentences Auscultation: clear to auscultation bilaterally Cardio: Jugular venous distension: no JVD Rate: regular rate Rhythm: regular rhythm Heart sounds: S1 normal heart sound present and S2 normal heart sound present Peripheral pulses: Peripheral pulses 2+ throughout GI: Inspection: no
[2021-09-04 07:47] LABS: Basophils Percent Auto 0.7 % (0.2-1.2); Eosinophils Absolute Auto 0.2 K/mm3 (0-0.3); Eosinophils Percent Auto 3.8 % (0-4.4); Hematocrit 41.2 % (37.0-47.0); Hemoglobin 13.1 g/dL (12.0-15.0); Immature Granulocyte Absolute 0.01 K/mm3 (0.00-0.031); Immature Granulocyte Percent A 0.2 % (0-0.5); Lymphocytes Absolute Auto 2.11 K/mm3 (0.9-3.2); Lymphocytes Percent Auto 34.6 % (18.3-44.2); Mean Corpuscular HGB Conc 31.8 g/dl (32-36); Mean Corpuscular Hemoglobin 29.2 pg (26-34); Mean Platelet Volume 10.3 fl (7.4-10.4); Monocytes Absolute Auto 0.5 K/mm3 (0.1-0.6); Monocytes Percent Auto 7.7 % (2.6-8.5); Neutrophils Absolute Auto 3.2 K/mm3 (1.3-6.7); Platelet Count Result 172 k/mm3 (150-375); Red Blood Count 4.48 M/mm3 (4.2-5.4); Red Cell Distribution Width 12.3 % (11.5-14.5); White Blood Count 6.1 K/mm3 (4.5-10.0)
[2021-09-04 07:48] LABS: Glucose Point of Care 121 mg/dl (65-105)
[2021-09-04 07:57] LABS: Alanine Aminotransferase 18 U/L (4-35); Albumin Level 3.7 g/dL (3.5-5.1); Alkaline Phosphatase 123 U/L (38-126); Anion Gap 5 mmol/L (8-16); Aspartate Amino Transferase 32 U/L (14-36); Bilirubin,Total 1.3 mg/dL (0.2-1.3); Blood Urea Nitrogen 10 mg/dL (7-17); Calcium 8.8 mg/dL (8.4-10.2); Carbon Dioxide 29 mmol/L (22-30); Chloride 101 mmol/L (98-107); Estimated CRCL calculation 86 ml/min; Estimated Glomerular Filt Rate > 60; Glucose 113 mg/dL (65-110); Magnesium 1.8 mg/dL (1.6-2.3); Potassium 4.2 mmol/L (3.4-5.0); Sodium 135 mmol/L (137-145)
[2021-09-04] MEDS: INSULIN GLARGINE (*BKC) 100 UNITS/ML 30 UNITS SUB-Q (09:10)
[2021-09-04] MEDS: ARIPiprazole 10 MG TABLET PO (09:12)
[2021-09-04] MEDS: CHOLECALCIFEROL 1,000 UNITS TABLET 2000 UNITS PO (09:12)
[2021-09-04] MEDS: LOVASTATIN 20 MG TABLET PO (09:12)
[2021-09-04] MEDS: GABAPENTIN 300 MG CAPSULE PO (09:13)
[2021-09-04] MEDS: FUROSEMIDE 20 MG TABLET PO (09:13)
[2021-09-04] MEDS: FLUoxetine HCL 10 MG CAPSULE PO (09:13)
[2021-09-04] MEDS: LOSARTAN POTASSIUM 100 MG TABLET PO (09:13)
[2021-09-04] MEDS: lamoTRIgine 100 MG, lamoTRIgine 50 MG 150 MG PO (09:13)
[2021-09-04] MEDS: MAGNESIUM SULF 2 GM/WATER 50ML 2 GM/50 ML BAG IVPB (10:07)
[2021-09-04 11:38] LABS: Glucose Point of Care 135 mg/dl (65-105)
[2021-09-04 12:29] VITALS: BP 133/53
[2021-09-04 14:00] VITALS: BP 125/52; PULSE 65; RESP 16; TEMP 36.9; O2SAT 97
== END 2021-09-04 15:35 | disposition home or self-care (01) ==
LOC: ANHED 17:07 → ANH3MEDSUR 09-04 06:55
PROVIDERS: Physician Assistant; Admitting Provider Family Medicine; Emergency Provider Emergency Medicine; PCP Internal Medicine; Visit Provider Nurse Practitioner
DX: I82.A11 Acute embolism and thrombosis of right axillary vein (principal); G20 Parkinson's disease; E11.22 Type 2 diabetes mellitus with diabetic chronic kidney disease; E78.5 Hyperlipidemia, unspecified; E55.9 Vitamin D deficiency, unspecified; F32.A Depression, unspecified; I12.9 Hypertensive chronic kidney disease with stage 1 through stage 4 chronic kidney disease, or unspecified chronic kidney disease; M17.12 Unilateral primary osteoarthritis, left knee; N18.30 Chronic kidney disease, stage 3 unspecified; Z98.84 Bariatric surgery status; Z90.49 Acquired absence of other specified parts of digestive tract; Z87.891 Personal history of nicotine dependence; Z79.4 Long term (current) use of insulin; Z86.16 Personal history of COVID-19
CPT/HCPCS: 36415; 80048; 80053; 82948; 83735; 84484; 85025; 85610; 85730; 93005; 93971; 96365; 96372; 99285; A9270; G0378; J1650; J1815; J3475

== ENCOUNTER 2022-06-18 14:09 | Outpatient (CLI) | payer MEDICARE, SELFPAY ==
[2022-06-18 14:13] LABS: Hematocrit 42.5 % (37.0-47.0); Hemoglobin 13.5 g/dL (12.0-15.0)
--- NOTE | 2022-06-18 14:17 | ECG_ITS ---
Measurements Intervals [place] Rate: 63 P: 25 MS: 168 QRS: -4 QRSD: 94 T: 94 QT: 455 QTc: 467 Interpretive Statements SINUS RHYTHM VENTRICULAR PREMATURE COMPLEXES LOW QRS VOLTAGE IN PRECORDIAL LEADS BORDERLINE ST-T WAVE ABNORMALITY- HIGH LATERAL LEADS BASELINE ARTIFACT- I, II, AVR, V4-V6 BORDERLINE ECG COMPARED TO ECG 09/03/2021 15:55:09 NO SIGNIFICANT CHANGES Electronically Signed On 06-18-2022 15:16:09 SAMPLE STEAMER by Zheng Myers D.O.
[2022-06-18 14:22] LABS: Glucose 79 mg/dL (65-110)
[2022-06-18 14:25] LABS: Hemoglobin A1C 6.2 % (<5.7)
[2022-06-18 14:32] LABS: Estimated Glomerular Filt Rate > 60
== END 2022-06-18 14:10 | disposition home or self-care (01) ==
PROVIDERS: PCP Internal Medicine; Visit Provider Orthopaedic Surgery
DX: E11.9 Type 2 diabetes mellitus without complications (principal); M17.12 Unilateral primary osteoarthritis, left knee; Z79.4 Long term (current) use of insulin; R09.89 Other specified symptoms and signs involving the circulatory and respiratory systems; Z01.818 Encounter for other preprocedural examination; R94.31 Abnormal electrocardiogram [ECG] [EKG]
CPT/HCPCS: 36415; 82040; 82565; 82947; 83036; 85014; 85018; 93005

== ENCOUNTER 2022-07-08 10:17 | Outpatient (CLI) | payer MEDICARE, SELFPAY ==
--- NOTE | ~2022-07-08 | MM_ITS ---
EXAMINATION: MM screening sonal BI w adrián HISTORY: Screening mammogram TECHNIQUE: Craniocaudal and mediolateral oblique 3-D tomosynthesis images were obtained and synthetic 2-D images were generated. CAD analysis was submitted and interpreted. COMPARISON: April 19, 2021 bilateral screening mammogram 10/30/2018 diagnostic right mammogram and limited right breast ultrasound bilateral screening mammogram BREAST PARENCHYMAL COMPOSITION: There are scattered areas of fibroglandular density. FINDINGS: Numerous bilateral benign calcifications. There is no evidence of suspicious mass, calcific ation, or architectural distortion to suggest malignancy in either breast. There has been no suspicio us interval change. IMPRESSION: 1. No mammographic evidence of malignancy. 2. Recommend routine screening mammography in one year. BI-RADS Category 2: Benign finding(s). Reviewed, dictated and finalized at location A. POUR SUPERVISOR
== END 2022-07-08 10:18 | disposition home or self-care (01) ==
PROVIDERS: PCP Internal Medicine; Visit Provider Internal Medicine
DX: Z12.31 Encounter for screening mammogram for malignant neoplasm of breast (principal)
CPT/HCPCS: 77063; 77067

== ENCOUNTER 2023-01-31 09:49 | Outpatient (CLI) | payer MEDICARE, SELFPAY ==
--- NOTE | ~2023-01-31 | US_ITS ---
EXAMINATION: US venous doppler UE RT DATE: 01/31/2023 10:39 INDICATION: Deep vein thrombosis involving right axillary vein. TECHNIQUE: Grayscale ultrasound images without and with compression and Doppler ultrasound images of the right upper extremity veins were obtained. COMPARISON: Ultrasound 09/03/2021 FINDINGS: The visualized portions of the right internal jugular vein, subclavian vein, axillary vein, brachial veins, basilic vein, cephalic vein, radial vein, and ulnar vein are patent. IMPRESSION: 1. No deep venous thrombosis. Reviewed, dictated and finalized at location A.
== END 2023-01-31 09:50 | disposition home or self-care (01) ==
PROVIDERS: PCP Family Medicine; Visit Provider Nurse Practitioner Family
DX: M79.601 Pain in right arm (principal); M79.89 Other specified soft tissue disorders; Z86.718 Personal history of other venous thrombosis and embolism
CPT/HCPCS: 93971

== ENCOUNTER 2023-04-11 08:58 | Outpatient (CLI) | payer MEDICARE, SELFPAY ==
--- NOTE | ~2023-04-11 | US_ITS ---
EXAMINATION: US abdomen limited DATE: 04/11/2023 10:36 INDICATION: Cirrhosis TECHNIQUE: Multiple grayscale and Doppler ultrasound images of the abdomen were obtained. COMPARISON: 09/19/2020 FINDINGS: Bowel gas obscures visualization of the pancreas. The visualized portions of the pancreas a re unremarkable. The liver demonstrates increased echogenicity, heterogenous echotexture, and decreas ed through transmission. There is nodularity of the liver surface. Normal hepatopetal flow in the todd n portal vein. The gallbladder is surgically absent. The normal common bile duct measures 2 mm. IMPRESSION: 1. Diffuse hepatic steatosis with cirrhosis. Reviewed, dictated and finalized at location F. M SHOVEL ENGINEER
== END 2023-04-11 08:59 | disposition home or self-care (01) ==
PROVIDERS: PCP Family Medicine; Visit Provider Internal Medicine Gastroenterology
DX: K75.81 Nonalcoholic steatohepatitis (NASH) (principal); K74.60 Unspecified cirrhosis of liver
CPT/HCPCS: 76705

== ENCOUNTER 2023-07-01 13:45 | Outpatient (CLI) | payer MEDICARE, SELFPAY ==
--- NOTE | ~2023-07-01 | CT_ITS ---
CT Scan of the Chest without Contrast: Clinical Indication: Lung cancer screening, personal history of nicotine dependence Technique: Contiguous sections were acquired throughout the chest without intravenous contrast. Dose reduction technique was used on this scan by utilizing automated exposure control and iterative recon struction technique. The dose-length product (DLP) was 151.46 mGy-cm. Findings: There is no evidence of any significant mediastinal, hilar or axillary lymphadenopathy. Coronary sanjay ry calcifications are present. There is no evidence of pleural or pericardial effusion. The lungs are clear. No pulmonary nodules or infiltrates are noted. Images through the upper abdomen reveal no abnormalities. Impression: Lung RADS 1: Negative. 12 month follow-up screening CT advised. Reviewed, dictated and finalized at location . STER RECOVERY MANAGER Impression: Lung RADS 1: Negative. 12 month follow-up screening CT advised.
== END 2023-07-01 13:46 | disposition home or self-care (01) ==
LOC: ANHIMG 13:46
PROVIDERS: PCP Family Medicine; Visit Provider Family Medicine
DX: Z12.2 Encounter for screening for malignant neoplasm of respiratory organs (principal); Z87.891 Personal history of nicotine dependence
CPT/HCPCS: 71271

== ENCOUNTER 2023-08-05 08:28 | Outpatient (CLI) | payer MEDICARE, MEDICAID, SELFPAY ==
--- NOTE | ~2023-08-05 | NM_ITS ---
EXAMINATION: NM ronnell stress w perfusion DATE: 08/05/2023 11:44 INDICATION: Dyspnea TECHNIQUE: Rest images were obtained following intravenous administration of 10.0 mCi Tc99m tetrofosm in (Myoview). The patient was infused intravenously with Lexiscan (Regadenoson). Then, 32.3 mCi Tc99m tetrofosmin (Myoview) was administered intravenously, and stress images were obtained in supine posi tion. Additional repeat post stress images were obtained in the prone position.. Data was reconstruct ed into short axis and horizontal and vertical long axis SPECT images. Gated SPECT images were also o btained. COMPARISON: None. FINDINGS: Small region of mild likely artifactual decreased activity at the apical anterior and mid i nferior segments on the post stress images obtained in the supine position which normalizes on the po st stress imaging obtained in the prone position. There is no definite reversible or fixed perfusion abnormality to suggest ischemia or infarction. There is normal left ventricular chamber size, wall m otion and ejection fraction. Left ventricular ejection fraction measures 70%. IMPRESSION: 1. Normal myocardial perfusion at rest and during stress. 2. Left ventricular ejection fraction measuring 70%. Reviewed, dictated and finalized at location A.
--- NOTE | 2023-08-05 08:43 | EST_ITS ---
Patient Info Name: Sonam Griffin Age: 68 years : 1955 Gender: Female Ht: 61 in Wt: 190 lbs BSA: 1.97 m2 HR: 61 bpm BP: 134 / 77 mmHg Heart Rhythm: Sinus Rhythm Exam Date: 08/05/2023 10:04 AM Exam Location: Echo Lab Patient Status: Outpatient Admit Date: 08/05/2023 Staff Ordering Physician: Zheng Myers DO Attending Provider: Zheng Myers DO Exercise Technologist: Mavis Orozco CT Exercise Physician: Zheng Myers DO Exam Type: CA stress ronnell w NM Study Info Indications Z01.810 - Encounter for preprocedural cardiovascular examination R06.09 - Other forms of dyspnea A regadenoson stress test was performed. Summary 1. 1. Negative lexiscan stress test for ischemic ST changes by ECG criteria. 2. 2. Stable hemodynamics throughout the test. 3. 3. Nuclear scan to follow and will be reported separately. Please correlate with it. 4. 4. Patient informed of the above results. Protocol: Lexiscan Stress ECG Details Stage: REST Duration (min): 1 min : 22 sec HR (bpm): 61 SBP (mmHg): 134 DBP (mmHg): 77 Stage: REST Duration (min): 14 min : 35 sec HR (bpm): 59 SBP (mmHg): 134 DBP (mmHg): 77 Stage: STAGE 1 Duration (min): 0 min : 59 sec HR (bpm): 80 SBP (mmHg): 134 DBP (mmHg): 77 Stage: RECOVERY Duration (min): 1 min : 0 sec HR (bpm): 80 SBP (mmHg): 134 DBP (mmHg): 77 Stage: RECOVERY Duration (min): 2 min : 0 sec HR (bpm): 80 SBP (mmHg): 134 DBP (mmHg): 58 Stage: RECOVERY Duration (min): 2 min : 11 sec HR (bpm): 73 SBP (mmHg): 134 DBP (mmHg): 58 Rest HR: 59 bpm Peak HR: 80 bpm Rest Sys BP: 134 mmHg Peak Sys BP: 134 mmHg Max Pred HR: 154 bpm % Max Pred HR: 52 % Target HR: 131 bpm Max RPP: 10,720 bpm*mmHg Termination Reason: Completed protocol Cardiac Symptoms: Shortness of breath Total Time: 1 min : 0 sec Rest Poe BP: 77 mmHg Peak Poe BP: 77 mmHg Total Dose: 0.4 mg Resting ECG Sinus bradycardia. Stress ECG No ST changes. Arrhythmias None. Report Signatures
== END 2023-08-05 08:29 | disposition home or self-care (01) ==
LOC: ANHCARD 08:31
PROVIDERS: PCP Family Medicine; Visit Provider Internal Medicine Cardiovascular Disease
DX: Z01.810 Encounter for preprocedural cardiovascular examination (principal); R06.00 Dyspnea, unspecified
CPT/HCPCS: 78452; 93017; A9502; J2785

== ENCOUNTER 2023-09-08 10:03 | Outpatient (CLI) | payer MEDICARE, MEDICAID, SELFPAY ==
[2023-09-08 11:22] LABS: Basophils Absolute Auto 0.1 K/mm3 (0.0-0.1); Basophils Percent Auto 0.9 % (0.2-1.2); Eosinophils Absolute Auto 0.2 K/mm3 (0-0.3); Eosinophils Percent Auto 2.2 % (0-4.4); Hematocrit 40.3 % (37.0-47.0); Hemoglobin 12.6 g/dL (12.0-15.0); Immature Granulocyte Absolute 0.02 K/mm3 (0.00-0.031); Immature Granulocyte Percent A 0.3 % (0-0.5); Lymphocytes Absolute Auto 2.08 K/mm3 (0.9-3.2); Lymphocytes Percent Auto 30.7 % (18.3-44.2); Mean Corpuscular HGB Conc 31.3 g/dl (32-36); Mean Corpuscular Hemoglobin 29.2 pg (26-34); Mean Corpuscular Volume 93.3 fl (80-100); Mean Platelet Volume 10.1 fl (7.4-10.4); Monocytes Absolute Auto 0.5 K/mm3 (0.1-0.6); Monocytes Percent Auto 7.5 % (2.6-8.5); Neutrophils Percent Auto 58.4 % (45.5-73.1); Platelet Count Result 182 k/mm3 (150-375); Red Blood Count 4.32 M/mm3 (4.2-5.4); Red Cell Distribution Width 14.5 % (11.5-14.5); White Blood Count 6.8 K/mm3 (4.5-10.0)
[2023-09-08 11:31] LABS: Albumin Level 4.5 g/dL (3.5-5.1); INR 1.3; Prothrombin Time 16.4 Seconds (11.1-14.7)
[2023-09-08 11:32] LABS: Partial Thromboplastin Time 33.5 Seconds (22.3-36.8)
[2023-09-08 11:34] LABS: Anion Gap 6 mmol/L (4-12); Blood Urea Nitrogen 11 mg/dL (7-17); Calcium 9.8 mg/dL (8.4-10.2); Carbon Dioxide 26 mmol/L (22-30); Chloride 105 mmol/L (98-107); Estimated Glomerular Filt Rate > 60; Glucose 89 mg/dL (65-110); Potassium 3.8 mmol/L (3.4-5.0); Sodium 137 mmol/L (137-145); Urine Cotinine NEGATIVE
[2023-09-08 12:34] LABS: MRSA (PCR) NOT DETECTED (NOT DETECTE)
== END 2023-09-08 10:04 | disposition home or self-care (01) ==
LOC: ANHSURGERY 10:06
PROVIDERS: Anesthesiology; PCP Family Medicine; Visit Provider Orthopaedic Surgery
DX: M17.12 Unilateral primary osteoarthritis, left knee (principal); K74.60 Unspecified cirrhosis of liver; E11.9 Type 2 diabetes mellitus without complications; Z01.818 Encounter for other preprocedural examination
CPT/HCPCS: 36415; 80048; 80307; 82040; 85025; 85610; 85730; 87641

== ENCOUNTER 2023-09-12 13:45 | Emergency (ER) | payer MEDICARE, MEDICAID, SELFPAY ==
--- NOTE | ~2023-09-12 | CT_ITS ---
EXAMINATION: CT brain wo con DATE: 09/12/2023 16:10 INDICATION: Weakness TECHNIQUE: Computed tomography (CT) of the head was performed without intravenous contrast. The dose- length product was 605.33 mGy-cm. Automated exposure control and iterative reconstruction technique were employed. COMPARISON: CT dated 12/03/2019) FINDINGS: parenchymal volume is normal for age. No acute infarction, hemorrhage, mass or mass effect. Midline sagittal images demonstrate a normal corpus callosum and craniovertebral junction. Basilar c isterns are patent. There is mild mucosal thickening of the left sphenoid sinus. Mastoids are pneumat ized. No depressed skull fractures. IMPRESSION: 1. No acute intracranial abnormality. Reviewed, dictated and finalized at location B.
--- NOTE | ~2023-09-12 | XR_ITS ---
EXAMINATION: XR chest 1V portable DATE: 09/12/2023 15:52 INDICATION: Weakness. TECHNIQUE: A single frontal view of the chest was obtained. COMPARISON: Chest 2 views 02/14/21 FINDINGS: There is no pneumonia, pleural effusion, or pneumothorax. The heart size is normal. IMPRESSION: 1. No acute cardiopulmonary disease. Reviewed, dictated and finalized at location A.
[2023-09-12 13:48] VITALS: BP 153/71; PULSE 58; RESP 16; TEMP 36.8; O2SAT 100
--- NOTE | 2023-09-12 14:46 | ECG_ITS ---
SEE SCANNED COPY FOR CONFIRMED REPORT MTDD
[2023-09-12 15:30] VITALS: BP 158/63; PULSE 54; RESP 16; O2SAT 98
[2023-09-12 15:36] LABS: Basophils Percent Auto 0.6 % (0.2-1.2); Eosinophils Absolute Auto 0.2 K/mm3 (0-0.3); Eosinophils Percent Auto 2.4 % (0-4.4); Hematocrit 38.5 % (37.0-47.0); Hemoglobin 12.3 g/dL (12.0-15.0); Immature Granulocyte Absolute 0.01 K/mm3 (0.00-0.031); Immature Granulocyte Percent A 0.2 % (0-0.5); Lymphocytes Absolute Auto 2.26 K/mm3 (0.9-3.2); Lymphocytes Percent Auto 36.1 % (18.3-44.2); Mean Corpuscular HGB Conc 31.9 g/dl (32-36); Mean Corpuscular Hemoglobin 29.8 pg (26-34); Mean Corpuscular Volume 93.2 fl (80-100); Mean Platelet Volume 10.4 fl (7.4-10.4); Monocytes Absolute Auto 0.5 K/mm3 (0.1-0.6); Monocytes Percent Auto 7.7 % (2.6-8.5); Neutrophils Absolute Auto 3.3 K/mm3 (1.3-6.7); Platelet Count Result 151 k/mm3 (150-375); Red Blood Count 4.13 M/mm3 (4.2-5.4); Red Cell Distribution Width 14.2 % (11.5-14.5); White Blood Count 6.3 K/mm3 (4.5-10.0)
[2023-09-12 15:37] LABS: Appearance Urine Clear (Clear); Bilirubin Urine Negative (Negative); Blood Urine Negative (Negative); Color Urine Yellow (Yellow); Glucose Urine UA 3+ mg/dL (Negative); Ketones Urine Negative (Negative); Leukocyte Esterase Ur Negative LEU/UL (Negative); Nitrate Urine Negative (Negative); Protein Urine Negative (Negative); Specific Grav Ur 1.013 (1.001-1.035); Urobilinogen Urine 0.2 mg/dL (<2.0)
[2023-09-12 15:39] LABS: Add Urine Microscopic? NO
[2023-09-12 15:45] LABS: Alanine Aminotransferase 13 U/L (6-35); Alkaline Phosphatase 95 U/L (38-126); Anion Gap 4 mmol/L (4-12); Aspartate Amino Transferase 25 U/L (14-36); Bilirubin,Total 0.9 mg/dL (0.2-1.3); Blood Urea Nitrogen 11 mg/dL (7-17); Calcium 9.2 mg/dL (8.4-10.2); Carbon Dioxide 28 mmol/L (22-30); Chloride 105 mmol/L (98-107); Estimated CRCL calculation 77 ml/min; Estimated Glomerular Filt Rate > 60; Glucose 71 mg/dL (65-110); Magnesium 1.9 mg/dL (1.6-2.3); Potassium 3.6 mmol/L (3.4-5.0); Sodium 137 mmol/L (137-145)
[2023-09-12] MEDS: SODIUM CHLORIDE 0.9% IV 1,000 ML 999 ML IV CONT (16:02)
[2023-09-12 16:14] LABS: Influenza A QL RT-PCR Negative (Negative); Influenza B QL RT-PCR Negative (Negative); RSV RNA, RT-PCR Negative (Negative); SARS-CoV-2 RNA PCR Negative (Negative)
[2023-09-12 16:30] VITALS: BP 153/54; PULSE 57; RESP 16; O2SAT 99
--- NOTE | 2023-09-12 16:51 | ED.WEAKNESS ---
HPI - Weakness General Chief complaint: Weakness Stated complaint: WEAKNESS X2D Time Seen by Provider: 09/12/23 14:44 Source: patient Mode of arrival: ambulatory Limitations: no limitations History of Present Illness HPI Narrative: Patient is a 68-year-old female, with PMH of Parkinson's Disease, DM, depression, who presents the ED with report of weakness. Patient reports she has felt increasingly weak over the last 2 days. States she just feels fatigued and generally unwell. Denies focal weakness, states she feels weak all over. She is still able to ambulate and do the things she needs to do at home, but just states she has no energy. Called her primary care doctor today and was referred to the ED for further evaluation. States she would like to be evaluated for a UTI. Is currently being treated for a yeast infection by OBGYN. Denies dysuria, urinary frequency, urgency, hematuria. Denies abdominal pain, nausea, vomiting, fevers, cough, cold symptoms, numbness, paresthesias, dizziness, lightheadedness, GOSS, chest pain, shortness of breath, confusion. Related Data Home Medications Medication Instructions Recorded Confirmed lamotrigine 150 mg tablet 150 mg PO DAILY 09/03/21 09/08/23 lovastatin 20 mg tablet 20 mg PO DAILY 09/03/21 09/08/23 fluoxetine 20 mg capsule 20 mg PO DAILY 09/17/21 09/08/23 cariprazine 3 mg capsule (Vraylar) 3 mg PO DAILY 09/08/23 09/08/23 cyanocobalamin (vitamin B-12) 1,000 mcg PO DAILY 09/08/23 09/08/23 1,000 mcg tablet Allergies Allergy/AdvReac Type Severity Reaction Status Date / Time erythromycin base Allergy Mild throat Verified 09/12/23 13:47 swelling Review of Systems Review of Systems: CONSTITUTIONAL: Reports generalized weakness. Denies fever, chills, or sweats. ENT: Denies rhinorrhea, congestion, sore throat. CARDIOVASCULAR: Denies chest pain, palpitations, or edema. RESPIRATORY: Denies cough or dyspnea. GASTROINTESTINAL: Denies abdominal pain, nausea, vomiting, or diarrhea. GENITOURINARY: Denies dysuria or hematuria. MUSCULOSKELETAL: Denies back pain, extremity pain, myalgia. NEUROLOGIC: Denies headache, dizziness, numbness, or focal weakness. All systems reviewed & are unremarkable except as noted in HPI and below PMFSH Past Medical History Medical History Abnormal mammogram Chronic kidney disease, stage 3 Cirrhosis Depression Diabetes Hypertension Localized osteoarthritis of left knee MCI (mild cognitive impairment) Other asthma Other hyperlipidemia Parkinson disease Predominantly in left upper Vitamin D deficiency, unspecified Surgical History Surgical History History of bariatric surgery History of cholecystectomy History of tubal ligation Family History Family History Sibling Malignant neoplasm of throat sister Diabetes mellitus Family history of diabetes mellitus in first degree relative Patient's brother is in good health Hypertension Father Family history of lung cancer Other Family history of malignant neoplasm Social History Social History Social History: Patient currently lives with her daughter Teri who will be her surrogate. Patient wishes to be a full code at this time and has 7 cats that live with her. Patient stated that they have been trying to get rid of the cats and are currently working on it. Caffeine-none Smoking packs per day: 1 Smoking cigarettes per day: 20.0 Years smoked: 5 Smoking pack-years: 5.00 Smoking status: Former smoker Tobacco type: cigarettes Second hand tobacco smoke exposure: Yes Smoking end date: 09/01/23 Additional smoking assessment comments: DENIES ANY FORM OF TOBACCO USE Alcohol intake: current Drinks per week: 1 Substance use:
[2023-09-12 18:19] LABS: Glucose Point of Care 145 mg/dl (65-105)
== END 2023-09-12 18:22 | disposition home or self-care (01) ==
PROVIDERS: Emergency Provider Physician Assistant; PCP Family Medicine
DX: R53.1 Weakness (principal); R53.83 Other fatigue; Z20.822 Contact with and (suspected) exposure to COVID-19; E11.22 Type 2 diabetes mellitus with diabetic chronic kidney disease; I12.9 Hypertensive chronic kidney disease with stage 1 through stage 4 chronic kidney disease, or unspecified chronic kidney disease; N18.30 Chronic kidney disease, stage 3 unspecified; G20.A1 Parkinson's disease without dyskinesia, without mention of fluctuations; J45.998 Other asthma; E78.49 Other hyperlipidemia; E55.9 Vitamin D deficiency, unspecified; M17.12 Unilateral primary osteoarthritis, left knee; F32.A Depression, unspecified; Z98.84 Bariatric surgery status; Z87.891 Personal history of nicotine dependence; Z90.49 Acquired absence of other specified parts of digestive tract; R00.1 Bradycardia, unspecified; Z79.85 Long-term (current) use of injectable non-insulin antidiabetic drugs; Z79.4 Long term (current) use of insulin
CPT/HCPCS: 36415; 70450; 71045; 80053; 81003; 82948; 83735; 85025; 87637; 93005; 96360; 99284; J7030

== ENCOUNTER 2023-09-17 13:35 | Outpatient (CLI) | payer MEDICARE, MEDICAID, SELFPAY ==
--- NOTE | ~2023-09-17 | MM_ITS ---
EXAMINATION: MM screening sonal BI w adrián HISTORY: Screening TECHNIQUE: Craniocaudal and mediolateral oblique 3-D tomosynthesis images were obtained and synthetic 2-D images were generated. CAD analysis was submitted and interpreted. COMPARISON: Comparison to multiple prior studies sequentially, with oldest reviewed study dated 11/30. BREAST PARENCHYMAL COMPOSITION: Not dense: There are scattered areas of fibroglandular density. FINDINGS: There is no evidence of suspicious mass, calcification, or architectural distortion to sugg est malignancy in either breast. There has been no suspicious interval change. IMPRESSION: 1. No mammographic evidence of malignancy. 2. Recommend routine screening mammography in one year. BI-RADS Category 1: Negative Reviewed, dictated and finalized at location B.
== END 2023-09-17 13:36 | disposition home or self-care (01) ==
LOC: ANHIMG 13:38
PROVIDERS: PCP Family Medicine; Visit Provider Nurse Practitioner Family
DX: Z12.31 Encounter for screening mammogram for malignant neoplasm of breast (principal)
CPT/HCPCS: 77063; 77067

== ENCOUNTER 2023-10-07 00:04 | Day surgery (SDC) | payer MEDICARE, MEDICAID, SELFPAY ==
[2023-09-08 10:28] VITALS: BMI 35.4
--- NOTE | 2023-09-08 10:43 | PC.NURSE ---
Report to the Outpatient Waiting Room, entrance under the green pavilion located off [facility], at time __0600 on date _10/07/23 . Planned Procedure Time: ___729 . Time changes happen often and if your time is changed the preop area will call you the afternoon before. - You and your visitor will be asked to self-screen and do not enter if you have any COVID symptoms. - A mask is optional within the hospital at this time. Patients may have clear liquids (water, carbonated beverages, clear teas, apple juice) until 3 hours prior to surgery ( 4:30 AM)with a maximum of 20 ounces. - No food from midnight until time of surgery - Infants may have breast milk until 4 hours before surgery, formula 6 hours prior to surgery. - Children will be allowed to drink immediately following surgery. If applicable, please bring a bottle or sippy cup to assist with drinking. Juice, water, soda, and popsicles are readily available. For infants on formula, please bring formula the day of surgery. Pacifiers are allowed. Take the following medications with a SIP of water the morning of surgery: __CARBIDOPA-LEVODOPA,VRAYLAR,FLUOXETINE,GABAPENTIN,LAMOTRIGINE INHALER IF NEEDED DO NOT STOP ANY OF YOUR OTHER PRESCRIPTION MEDICATIONS PRIOR TO SURGERY ?EXCEPT THE FOLLOWING Medications to discontinue per physician ____PT STATES HOLD ELIQUIS 3 DAYS PRE OP PER DR ROUSE.LAST DOSE 10/03/23. HOLD ALL VITAMINS AND SUPPLEMENTS 3 DAYS PRE OP LAST DOSE 10/03/23 Please no make-up, nail bulgarian, hairspray, perfume, deodorant, or body powder the day of surgery. No jewelry (including any body piercings) or valuables the day of surgery, leave them at home. Please take a shower or bath the night before, or the morning of, surgery with an antibacterial soap. Wear comfortable, loose fitting clothing. Children are encouraged to wear pajamas. - Jewelry must be removed prior to entering the operating room. Rings and piercings that are not removed may be cut off. - The hospital will not accept responsibility for valuables. - Please leave all valuables, including medications, at home the day of surgery. If you are going home after surgery, a licensed racing car driver must drive you home. - NO public transportation without another adult if you receive anesthesia. - We recommend that an adult stay with you for 24 hours following discharge. - We also recommend that you do not drive, make important decision, drink alcoholic beverages, or take any drugs that were not prescribed by your health care provider for at least 24 hours after your discharge time. Follow any additional instructions given to you from your surgeon. If you or anyone in your household have experienced Covid symptoms in the past week, please notify your surgeon or the nurse liaison at the phone number below for possible testing. VERBAL AND WRITTEN instructions given to _PATIENT AND SPOUSE GARY and asked if any additional questions and then verbalized understanding. Patient advised to call surgeon office or pre surgery nurse liaison [phone] if any additional questions.
[2023-09-08 11:07] VITALS: BP 142/65; PULSE 56; RESP 18; TEMP 36.7; O2SAT 96
[2023-10-07] VITALS (16 sets, daily range): BP systolic 132–185; BP diastolic 56–74; PULSE 56–71; RESP 8–20; TEMP 36.3–36.6; O2SAT 96–100; BMI 34.6
--- NOTE | ~2023-10-07 | XR_ITS ---
EXAMINATION: [id number]_[id number] DATE: 10/07/2023 09:33 INDICATION: Total left knee arthroplasty. Postop. TECHNIQUE: 2 views of left knee were obtained. COMPARISON: Left knee radiographs 07/16/2023 FINDINGS: There is a total left knee arthroplasty with patellar resurfacing in anatomic alignment. No fracture. There is gas in the knee joint and soft tissues, consistent with recent surgery. IMPRESSION: 1. Total left knee arthroplasty in near-anatomic alignment. Reviewed, dictated and finalized at location A.
[2023-10-07] MEDS: LACTATED RINGERS 1,000 ML 30 ML IV CONT ×2 (06:30→09:22)
[2023-10-07] MEDS: ACETAMINOPHEN 500 MG TABLET 1000 MG PO (06:43)
[2023-10-07 06:44] LABS: Glucose Point of Care 90 mg/dl (65-105)
[2023-10-07 06:50] LABS: INR 1.1; Prothrombin Time 14.5 Seconds (11.1-14.7)
[2023-10-07] MEDS: TRANEXAMIC ACID 1,000MG/ISO100 1,000 MG/100 ML BAG 200 MG IVPB (06:54)
--- NOTE | 2023-10-07 06:54 | WPDANESEPPF ---
Anes - Initial Pre Proc Eval Procedure: Operation Date: 10/07/23 07:30 Proposed Procedures p Left Total Knee Arthroplasty - Phill Fields MD Date/Time: 10/07/23 06:54 Surgeon: Phill Fields MD Pre Op Diagnosis: Prim O A Lt Knee Patient Data Age: 68 Gender: F Height: 1.55 m Weight: 83.2 kg Last Vital Signs Temp 98.0 F 09/08/23 11:07 Pulse 56 L 09/08/23 11:07 Resp 18 09/08/23 11:07 BP 142/65 H 09/08/23 11:07 Pulse Ox 96 09/08/23 11:07 O2 Del Method Room Air 09/08/23 11:07 Allergies Allergy/AdvReac Type Severity Reaction Status Date / Time erythromycin base Allergy Mild throat Verified 10/07/23 06:13 swelling Home Medications Medication Instructions Recorded Confirmed Type cholecalciferol (vitamin D3) 50 50 mcg PO DAILY #90 tabs 04/23/21 10/07/23 Rx mcg (2,000 unit) tablet lamotrigine 150 mg tablet 150 mg PO DAILY 09/03/21 10/02/23 History lovastatin 20 mg tablet 20 mg PO DAILY 09/03/21 10/02/23 History fluoxetine 20 mg capsule 20 mg PO DAILY 09/17/21 10/02/23 History pen needle, diabetic 29 gauge #100 ea 01/24/22 10/02/23 Rx blood sugar diagnostic (Accu-Chek #100 ea 01/31/22 10/02/23 Rx Maria E Plus test strips) albuterol sulfate 90 mcg/actuation 2 puff inhalation Q4H PRN 05/21/22 10/02/23 Rx aerosol inhaler shortness of breath or wheezing #8.5 grams apixaban 5 mg tablet (Eliquis) See Rx Instructions .Route 08/06/22 10/07/23 Rx .COMPLEX #180 tabs carbidopa 25 mg-levodopa 100 mg 1 tablet PO TID #90 tabs 01/03/23 10/02/23 Rx tablet (Sinemet) empagliflozin 25 mg tablet 25 mg PO DAILY #90 tabs 05/20/23 10/02/23 Rx (Jardiance) semaglutide 1 mg/dose (4 mg/3 mL) 1 mg (0.75 mL) subcut WEEKLY 3 05/22/23 10/02/23 Rx subcutaneous pen injector (Ozempic) months #9.75 mL triamcinolone acetonide 0.1 % 1 applic topical BID PRN rash on 06/12/23 10/02/23 Rx topical cream back of neck #454 grams pioglitazone 45 mg tablet 45 mg PO DAILY #90 tabs 07/10/23 10/02/23 Rx gabapentin 300 mg capsule See Rx Instructions .Route 07/28/23 10/02/23 Rx .COMPLEX #90 caps donepezil 5 mg tablet 10 mg .Route .COMPLEX #90 tabs 08/26/23 10/02/23 Rx cariprazine 3 mg capsule (Vraylar) 3 mg PO DAILY 09/08/23 10/02/23 History cyanocobalamin (vitamin B-12) 1,000 mcg PO DAILY 09/08/23 10/07/23 History 1,000 mcg tablet mirabegron 25 mg tablet,extended See Rx Instructions .Route 09/08/23 10/02/23 Rx release 24 hr (Myrbetriq) .COMPLEX #90 tabs insulin detemir U-100 100 unit/mL See Rx Instructions subcut DAILY 10/02/23 Rx (3 mL) subcutaneous pen #15 mL Laboratory Tests 10/07/23 10/07/23 06:31 06:40 PT 14.5 Seconds (11.1-14.7) INR 1.1 POC Capillary Glucose 90 mg/dl (65-105) Patient hx anesthesia problems: none Family hx anesthesia problems: none Results Review: All pre-operative results and documents have been reviewed as part of the pre-operative evaluation. [facility] Past Medical History Medical History Abnormal mammogram Chronic kidney disease, stage 3 Cirrhosis Depression Diabetes Hypertension Localized osteoarthritis of left knee MCI (mild cognitive impairment) Other asthma Other hyperlipidemia Parkinson disease Predominantly in left upper Vitamin D deficiency, unspecified Surgical History Surgical History History of bariatric surgery History of cholecystectomy History of tubal ligation Family History Family History Sibling Malignant neoplasm of throat sister Diabetes mellitus Family history of diabetes mellitus in first degree relative Patient's brother is in good health Hypertension Father Family history of lung cancer Other Family history of malignant neoplasm Social History Social History (Reviewed 10/07/23
--- NOTE | 2023-10-07 07:02 | WPDHPUPDATE1 ---
History and Physical Update Update Date/Time: 10/07/23 07:02 History and Physical has been reviewed, including an updated exam of the patient. There are NO changes in the patient's condition. Risks, benefits, and alternatives have been discussed and questions answered. Patient agrees to proceed with procedure.
[2023-10-07] MEDS: ceFAZolin 2 GM/D5W 50 ML 2 GM/50 ML BAG IVPB ×2 (07:36→15:15)
--- NOTE | 2023-10-07 08:23 | WPDANESPNB ---
Anes - Peripheral Nerve Block Date/Time: 10/07/23 08:23 I have discussed with the patient/family/POA the placement of a peripheral nerve block for post-operative pain management, including associated risks, benefits, complications, and side effects. Alternative methods of post-operative analgesia were detailed. Questions were solicited and answers provided to the satisfaction of the patient/family/POA. Time-Out: A pre-procedural Time-Out was completed immediately before starting the procedure and confirmed: Patient Identification, Site, Procedure, Patient Position and the Availability of Requisite Equipment. Clinical Indications: Acute post-operative pain management requested by the operative surgeon. Nerve Block Insertion Note Anes-nerve block: adductor canal left Patient position: supine Skin prep: chlorhexidine Needle: 22 gauge, stimulating, insulated echogenic needle. Needle length: 80 mm Technique: ultrasound Injectate: other (Bupiv 0.5%, 15 mls. ) Observations: tolerated well Complications: none Procedure start time:: 722 Procedure end time::
[2023-10-07] MEDS: SODIUM CHLORIDE 0.9% IV 38.7 ML, MORPHINE SULFATE INJ (*CRX) 2 MG, ROPivacaine HCL 1% 2... INFILTRATE (08:33)
[2023-10-07 09:33] LABS: Glucose Point of Care 121 mg/dl (65-105)
[2023-10-07] MEDS: fentaNYL CITRATE INJ (*CRX) 100 MCG/2 ML VIAL 25 MCG IV PUSH ×6 (09:33→10:23)
--- NOTE | 2023-10-07 09:38 | W.PM.PROC2 ---
Procedure Note - Detailed Date of Procedure 10/07/23 Pre-op Diagnosis Prim O A Lt Knee Post-op Diagnosis Same Procedure Performed Total knee arthroplasty, left Surgeon Phill Fields MD Anesthesia General and Regional (subsartorial block) Findings Good bone quality. Mild medial release. Standard bony resections. Description of Procedure The patient was brought to the operating room. A general anesthetic was administered. The leg was prepped and draped in the usual sterile fashion. The limb was elevated and the tourniquet inflated to 300 mmHg. A longitudinal incision was created along the medial border of the patella and patellar tendon, and a trivector approach to the knee was performed. A mild medial release was taken. The knee was then flexed. The osteophytes were carefully removed. The intramedullary guide was placed in the femoral canal. The distal femoral resection was then taken with the oscillating saw. The collateral ligaments were carefully protected. The tibia was carefully exposed. The jig was applied, and the proximal tibia was resected according to preoperative plan. The knee was balanced in extension. Appropriate releases were taken where needed. The anterior cruciate ligament and meniscal remnants were removed. The posterior cruciate ligament was preserved. The patella was measured. Patellar resection was carried out with the oscillating saw. The lug holes drilled. The femur was sized and rotation assessed using a combination of gap balancing, posterior referencing, and the AP axis. The 4 in 1 cutting block was used to finish the femoral cuts after equal gaps were assured. The osteophytes were carefully removed from the back of the knee. The knee was copiously irrigated with antibiotic solution periodically throughout the procedure. The meniscal remnants were removed. The spacer block was used to confirm equal flexion and extension gaps. No further releases were needed. The tibia was sized and broached. The bony surfaces were prepared for cementing with pulsatile lavage. The real tibia was cemented into position. The femur was press-fit. The patella was press-fit. Excess cement was carefully removed. Patellar tracking was carefully assessed. No additional releases were required. Copious irrigation then performed. The wound was closed with #1 Vicryl suture, #2, 2-0, and 3-0 barbed suture, followed by Steri-Strips. A sterile bulky dressing was applied. Meticulous hemostasis was maintained throughout the procedure, and the bipolar cautery device was used. The pain relieving mixture was injected into the periarticular tissues during the procedure. There were no complications. The patient was extubated and brought to the recovery room in stable condition after the application of sterile dressing with Michael bandage. Implants Alfred Triathlon knee system, low profile cemented tibia size 3, press-fit cruciate retaining femoral component size 2, 9 mm cruciate retaining polyethylene insert. 29mm asymmetric tritanium patella component. Estimated Blood Loss 50 Drains No Pathology None sent Complications No immediate complications Condition Stable Disposition PACU [facility] Billing Surgery - Charge Forward: Surgery Billing
[2023-10-07] MEDS: hydrALAZINE HCL 20 MG/ML VIAL 5 MG IV PUSH (10:04)
[2023-10-07] MEDS: oxyCODONE HCL (*CRX) 5 MG TAB IR PO (10:21)
--- NOTE | 2023-10-07 11:38 | ADMGEN ---
This patient, Sonam Griffin, was admitted to 3 [facility] Surg Room 310-01. Patient/family oriented to hospital policies and general routines including ID bracelet, bed and alarms, visiting hours, pain management, procedures, bathroom and other care routines, personal items, smoking policy, room service/diet, and visiting hours. Information on how to activate the Rapid Response Team has been discussed. Patient/Family are encouraged to report perceived risks to care and to ask questions if they do not understand what they are told or what they should do.
[2023-10-07] MEDS: IBUPROFEN IV 800 MG/200 ML 800 MG/200 ML BAG 400 MG IVPB (12:15)
[2023-10-07] MEDS: ACETAMINOPHEN 325 MG TABLET 650 MG PO (12:17)
[2023-10-07] MEDS: traMADol HCL (*CRX) 50 MG TABLET PO (12:17)
[2023-10-07] MEDS: oxyCODONE/ACETAMINOPHEN (*CRX) 10-325 MG TABLET 1 TAB PO (16:36)
[2023-10-07] MEDS: SENNA/DOCUSATE SODIUM TABLET 2 TAB PO (16:36)
[2023-10-07] MEDS: predniSONE 5 MG TABLET PO (16:36)
[2023-10-07] MEDS: ASPIRIN 81 MG ENTERIC TABLET PO (20:37)
[2023-10-08] MEDS: ACETAMINOPHEN 325 MG TABLET 650 MG PO (00:12)
[2023-10-08] MEDS: ceFAZolin 2 GM/D5W 50 ML 2 GM/50 ML BAG IVPB ×2 (00:12→08:22)
[2023-10-08 01:20] VITALS: BP 139/60; PULSE 58; RESP 20; TEMP 35.9; O2SAT 98
[2023-10-08 05:20] VITALS: BP 135/52; PULSE 51; RESP 18; TEMP 35.5; O2SAT 98
[2023-10-08] MEDS: oxyCODONE/ACETAMINOPHEN (*CRX) 10-325 MG TABLET 1 TAB PO (05:42)
[2023-10-08 06:07] LABS: Basophils Percent Auto 0.3 % (0.2-1.2); Eosinophils Absolute Auto 0.1 K/mm3 (0-0.3); Eosinophils Percent Auto 0.6 % (0-4.4); Hematocrit 38.5 % (37.0-47.0); Hemoglobin 12.5 g/dL (12.0-15.0); Immature Granulocyte Absolute 0.02 K/mm3 (0.00-0.031); Immature Granulocyte Percent A 0.2 % (0-0.5); Lymphocytes Absolute Auto 1.65 K/mm3 (0.9-3.2); Mean Corpuscular HGB Conc 32.5 g/dl (32-36); Mean Corpuscular Hemoglobin 29.8 pg (26-34); Mean Corpuscular Volume 91.9 fl (80-100); Mean Platelet Volume 10.3 fl (7.4-10.4); Monocytes Absolute Auto 0.8 K/mm3 (0.1-0.6); Monocytes Percent Auto 7.4 % (2.6-8.5); Neutrophils Absolute Auto 7.8 K/mm3 (1.3-6.7); Neutrophils Percent Auto 75.5 % (45.5-73.1); Platelet Count Result 163 k/mm3 (150-375); Red Blood Count 4.19 M/mm3 (4.2-5.4); Red Cell Distribution Width 13.5 % (11.5-14.5); White Blood Count 10.3 K/mm3 (4.5-10.0)
[2023-10-08 06:29] LABS: Anion Gap 4 mmol/L (4-12); Blood Urea Nitrogen 12 mg/dL (7-17); Carbon Dioxide 29 mmol/L (22-30); Chloride 101 mmol/L (98-107); Estimated CRCL calculation 59 ml/min; Estimated Glomerular Filt Rate > 60; Glucose 100 mg/dL (65-110); Potassium 4.2 mmol/L (3.4-5.0); Sodium 134 mmol/L (137-145)
[2023-10-08] MEDS: GABAPENTIN 300 MG CAPSULE BY MOUTH (08:18)
[2023-10-08] MEDS: DONEPEZIL HCL 10 MG TABLET BY MOUTH (08:18)
[2023-10-08] MEDS: PIOGLITAZONE HCL 45 MG TABLET PO (08:18)
[2023-10-08] MEDS: EMPAGLIFLOZIN 25 MG TABLET PO (08:18)
[2023-10-08] MEDS: LOVASTATIN 20 MG TABLET PO (08:18)
[2023-10-08] MEDS: lamoTRIgine 50 MG TABLET 150 MG PO (08:18)
[2023-10-08] MEDS: FLUoxetine HCL 20 MG CAPSULE PO (08:18)
[2023-10-08] MEDS: CHOLECALCIFEROL 1,000 UNITS TABLET 2000 UNITS PO (08:18)
[2023-10-08] MEDS: SENNA/DOCUSATE SODIUM TABLET 2 TAB PO (08:19)
[2023-10-08] MEDS: ASPIRIN 81 MG ENTERIC TABLET PO (08:19)
[2023-10-08] MEDS: CYANOCOBALAMIN 1,000 MCG TABLET 1000 MCG PO (08:19)
--- NOTE | 2023-10-08 08:51 | P.PNAN_ITS ---
Anes - Prog Note Post-Op Date/Time: 10/08/23 08:51 Vital Signs: Last Vital Signs Temp 35.5 C L 10/08/23 05:20 Pulse 51 L 10/08/23 05:20 Resp 18 10/08/23 05:20 BP 135/52 L 10/08/23 05:20 Pulse Ox 98 10/08/23 05:20 O2 Del Method Room Air 10/07/23 15:31 O2 Flow Rate 10 10/07/23 09:30 Pain Score (VAS): 0 when laying in bed or not moving. pt states it hurts when she is up moving. I/O: Intake & Output 10/07/23 10/08/23 10/08/23 23:59 07:59 15:59 Intake Total 790 350 Balance 790 350 Laboratory Tests 10/08/23 05:52 10/08/23 05:52 10/07/23 10/08/23 09:31 05:52 WBC 10.3 H RBC 4.19 L Hgb 12.5 Hct 38.5 MCV 91.9 MCH 29.8 MCHC 32.5 RDW 13.5 Plt Count 163 MPV 10.3 Immature Gran % (Auto) 0.2 Neut % (Auto) 75.5 H Lymph % (Auto) 16.0 L [place] % (Auto) 7.4 Eos % (Auto) 0.6 Baso % (Auto) 0.3 Lymph # (Auto) 1.65 [place] # (Auto) 0.8 H Eos # (Auto) 0.1 Baso # (Auto) 0.0 Abs Immat Gran (auto) 0.02 Absolute Neuts (auto) 7.8 H Absolute Nucleated RBC 0.000 Nucleated RBC % 0.0 Sodium 134 L Potassium 4.2 Chloride 101 Carbon Dioxide 29 Anion Gap 4 BUN 12 Creatinine 0.80 Estim Creat Clear Calc 59 Estimated GFR > 60 Glucose 100 POC Capillary Glucose 121 H Calcium 9.0 Post-procedural complaints: none Patient Feedback: Patient satisfied with anesthetic care.
--- NOTE | 2023-10-08 09:02 | PM.DS ---
DS: Admitting Diagnosis Discharge Date 10/08/23 Admitting Diagnosis Knee arthritis. DS: Discharge Diagnosis Discharge Diagnosis (1) Status post total left knee replacement: Code(s): Z96.652 - Presence of left artificial knee joint Status: Acute Assessment and Plan: Postop day 1: Left total knee arthroplasty. Patient tolerated procedure well. No complications. Pain manageable with pain medication. No numbness or tingling. We had a lengthy discussion regarding postoperative wound care, limitations, expectations, and exercises. Patient shows good understanding. She has had initial physical therapy and is tolerating it well. DVT prophylaxis: 81 mg baby aspirin b.i.d. for 7 days. Then resume Eliquis. Pain medication: Percocet. Prednisone. Patient has followup appointment with Dr. Fields in 3 weeks. DS: Summary Hospital Course Reason for hospitalization: Total knee arthroplasty Hospital Course: Patient tolerated procedure well. Has had initial PT/OT. Status at Discharge Functional status at discharge: uses cane/walker Overall status at discharge: patient is progressing back to baseline Time Spent with Patient Time attestation: Total time spent providing and/or coordinating discharge services: Exam Narrative: 68-year-old overweight female. Resting comfortably in chair. Alert and oriented x3. No acute distress. Wearing compression socks bilaterally. Dressing intact without drainage. Moderate swelling. No ecchymosis. No erythema. No hematoma. Range of motion limited due to pain. Calf nontender. Quad fires. Neurologic status intact. No varicosities. Distal pulses palpable. DS: Data Data Completed and Pending Labs on day of discharge: Labs from last 24 hours 10/08/23 10/07/23 05:52 09:31 WBC 10.3 H RBC 4.19 L Hgb 12.5 Hct 38.5 MCV 91.9 MCH 29.8 MCHC 32.5 RDW 13.5 Plt Count 163 MPV 10.3 Immature Gran % (Auto) 0.2 Neut % (Auto) 75.5 H Lymph % (Auto) 16.0 L [place] % (Auto) 7.4 Eos % (Auto) 0.6 Baso % (Auto) 0.3 Lymph # (Auto) 1.65 [place] # (Auto) 0.8 H Eos # (Auto) 0.1 Baso # (Auto) 0.0 Abs Immat Gran (auto) 0.02 Absolute Neuts (auto) 7.8 H Absolute Nucleated RBC 0.000 Nucleated RBC % 0.0 Sodium 134 L Potassium 4.2 Chloride 101 Carbon Dioxide 29 Anion Gap 4 BUN 12 Creatinine 0.80 Estim Creat Clear Calc 59 Estimated GFR > 60 Glucose 100 POC Capillary Glucose 121 H Calcium 9.0 Discharge Plan Discharge Patient Disposition: Home, Self-Care Discharge Instructions: See green instruction sheets Stand Alone Forms: General Discharge Instructions Follow-up/Referrals: Jennifer Mariee PA [Physician [facility]uler] - Discharge Medications: New aspirin 81 mg tablet,delayed release (DR/EC) 81 mg PO BID 7 Days Qty: 14 0RF oxycodone-acetaminophen 5-325 mg tablet 1 - 2 tablet PO Q4-6H MDD 6 PRN (Reason: pain) Qty: 30 0RF prednisone 5 mg tablet 5 mg PO DAILY 21 Days Qty: 21 0RF Rx Instructions: Stop if blood sugar goes above 200. Continued fluoxetine 20 mg capsule 20 mg PO DAILY triamcinolone acetonide 0.1 % cream 1 applic topical BID PRN (Reason: rash on back of neck) Qty: 454 0RF Myrbetriq 25 mg tablet extended release 24 hr See Rx Instructions .ROUTE .COMPLEX Qty: 90 4RF Dose Instruction: Take 1 tablet by mouth once daily Rx Instructions: Take 1 tablet by mouth once daily donepezil 5 mg tablet 10 mg .Route .COMPLEX Qty: 90 6RF Rx Instructions: Start with 5 mg daily morning for 2 weeks and then 10 mg to continue Vraylar 3 mg capsule 3 mg PO DAILY cyanocobalamin (vitamin B-12) 1,000 mcg Tablet 1,000 mcg PO DAILY lamotrigine 150 mg tablet 150 mg PO DAILY lovastatin 20 mg tablet 20 mg PO DAILY cholecalciferol (vitamin D3) 50 mcg (2,000 unit) tablet 50 mcg PO DAILY Qty
== END 2023-10-08 11:55 | disposition home or self-care (01) ==
LOC: ANHSURGERY 05:36 → ANH3MEDSUR 11:45
PROVIDERS: Anesthesiology; PCP Family Medicine; Visit Provider Orthopaedic Surgery
PROC: (CPT 27447; principal; 2023-10-07 07:30)
DX: M17.12 Unilateral primary osteoarthritis, left knee (principal); M25.762 Osteophyte, left knee; I12.9 Hypertensive chronic kidney disease with stage 1 through stage 4 chronic kidney disease, or unspecified chronic kidney disease; F32.A Depression, unspecified; G20.A1 Parkinson's disease without dyskinesia, without mention of fluctuations; N18.30 Chronic kidney disease, stage 3 unspecified; K74.60 Unspecified cirrhosis of liver; E11.9 Type 2 diabetes mellitus without complications; E78.49 Other hyperlipidemia; J45.998 Other asthma; G31.84 Mild cognitive impairment of uncertain or unknown etiology; E55.9 Vitamin D deficiency, unspecified; G89.18 Other acute postprocedural pain; E66.9 Obesity, unspecified; Z68.34 Body mass index [BMI] 34.0-34.9, adult; Z79.51 Long term (current) use of inhaled steroids; Z79.01 Long term (current) use of anticoagulants; Z79.85 Long-term (current) use of injectable non-insulin antidiabetic drugs; Z79.4 Long term (current) use of insulin; Z79.84 Long term (current) use of oral hypoglycemic drugs; Z98.890 Other specified postprocedural states; Z90.49 Acquired absence of other specified parts of digestive tract; Z98.84 Bariatric surgery status; Z87.891 Personal history of nicotine dependence; Z80.1 Family history of malignant neoplasm of trachea, bronchus and lung
CPT/HCPCS: 64447; 27447; 36415; 73560; 80048; 80307; 82040; 82948; 85025; 85610; 85730; 86850; 86900; 86901; 87641; 97110; 97116; 97161; 97165; 97530; 97535; A9270; C1713; C1776; J0171; J0330; J0360; J0690; J1100; J1596; J1741; J2250; J2270; J2405; J2704; J2795; J3010; J7120; J7512

== ENCOUNTER 2023-11-18 14:04 | Outpatient (CLI) | payer MEDICARE, MEDICAID, SELFPAY ==
--- NOTE | ~2023-11-18 | XR_ITS ---
EXAMINATION: XR lumbar spine 2-3V DATE: 11/18/2023 14:18 INDICATION: Low back pain, unspecified. TECHNIQUE: 3 views of lumbar spine were obtained. COMPARISON: Lumbar spine radiographs 01/24/2021 FINDINGS: There is 4 degrees dextrocurvature of lumbar spine. Vertebral body heights are normal. Ther e is moderately decreased disc height at L3-L4 and L4-L5. There is multilevel facet joint osteoarthri tis, severe in lower lumbar spine. Surgical clips in the right upper quadrant are likely from cholecy stectomy. IMPRESSION: 1. Moderate lumbar spondylosis. Reviewed, dictated and finalized at location A.
== END 2023-11-18 14:05 | disposition home or self-care (01) ==
LOC: ANHIMG 14:07
PROVIDERS: PCP Family Medicine; Visit Provider Family Medicine
DX: M47.896 Other spondylosis, lumbar region (principal)
CPT/HCPCS: 72100

== ENCOUNTER 2023-11-26 09:01 | Outpatient (CLI) | payer MEDICARE, MEDICAID, SELFPAY ==
--- NOTE | ~2023-11-26 | XR_ITS ---
XR knee LT 3V Ordering provider: Phill Fields MD History: . Z96.652 - Presence of left artificial knee joint . Comparison: July 16, 2023 FINDINGS: BONES: No acute fracture or dislocation. JOINT SPACES: Total knee arthroplasty. SOFT TISSUES: Vascular calcifications. IMPRESSION: No acute osseous abnormality left knee. Left total knee arthroplasty. Reviewed, dictated and finalized at location A.
== END 2023-11-26 09:02 | disposition home or self-care (01) ==
PROVIDERS: PCP Family Medicine; Visit Provider Orthopaedic Surgery
DX: Z96.652 Presence of left artificial knee joint (principal)
CPT/HCPCS: 73562

== ENCOUNTER 2023-11-27 14:09 | Outpatient (CLI) | payer MEDICARE, MEDICAID, SELFPAY ==
--- NOTE | ~2023-11-27 | DEXA_ITS ---
Bone Density Report Name: SUSANA MARTINEZ Age: 68 Sex: Female Ethnicity: White Date of : 1955 Indication: postmenopausal; screening for osteoporosis; history of glucocorticoids; asthma or emphysema; Referring Provider: SAMAN MARTINEZ Study: Bone densitometry was performed. Exam Date: November 27, 2023 Accession number: [id number] Bone Density: Region BMD T-score Z-score Classification AP Spine(L1-L4) 1.088 0.4 2.2 Normal Femoral Neck (Left) 0.620 -2.1 -0.5 Osteopenia Total Hip (Left) 0.913 -0.2 1.1 Normal Femoral Neck (Right) 0.663 -1.7 -0.1 Osteopenia Total Hip (Right) 0.952 0.1 1.4 Normal Total Hip Mean 0.932 -0.1 1.3 Normal World Health Organization criteria for BMD impression classify patients as: Normal (T-score at or above -1.0), Osteopenia (T-score between -1.0 and -2.5), or Osteoporosis (T-score at or below -2.5). 10-year Fracture Risk(1): Major Osteoporotic Fracture 17% Hip Fracture 3.0% Reported Risk Factors: US (), Neck BMD=0.620, BMI=33.4, glucocorticoids (1) FRAX(R) Version 3.08. Fracture probability calculated for an untreated patient. Fracture probability may be lower if the patient has received treatment. Clinical Information Provided by Patient: Has taken Glucocorticoids Has used the following medications: Vitamin D Has the following medical conditions: Asthma or Emphysema Patient maximum height was 62.0 Menopause Age: 62 No regular weight bearing exercise Onset of menses at age 16 Number of children 2 Impression: The patient has low bone mass, based on the Left Femoral Neck T-score. The patient has an estimated ten-year risk of hip fracture of 3% and an estimated ten-year risk of major fracture of 17%, based on the WHO FRAX algorithm. The patient has risk factors, including: history of glucocorticoid therapy. Discussion: BONE DENSITY IS LOW AT ONE OR MORE SKELETAL SITES. THE PATIENT'S BMD AND CLINICAL RISK FACTORS CONTRIBUTE TO THIS PATIENT'S INCREASED RISK OF FRACTURE. This patient's lowest T-score is low at one or more skeletal sites. It meets the World Health Organization's (WHO) criteria for ?low bone mass? (T-score between -1.0 and -2.5). The patient's 10-year risk of hip fracture as calculated by FRAX exceeds the threshold where pharmacological therapy is recommended by the National Osteoporosis Foundation (NOF). However, all treatment decisions require clinical judgment and consideration of individual patient factors, including patient preferences, comorbidities, previous drug use, risk factors not captured in the FRAX model (e.g., frailty, falls, vitamin D deficiency, increased bone turnover, interval significant decline in bone density) and possible under or overestimation of fracture risk by FRAX. The patient should follow a h
== END 2023-11-27 14:10 | disposition home or self-care (01) ==
PROVIDERS: PCP Family Medicine; Visit Provider Family Medicine
DX: Z78.0 Asymptomatic menopausal state (principal); Z13.820 Encounter for screening for osteoporosis
CPT/HCPCS: 77080

== ENCOUNTER 2024-03-09 07:50 | Outpatient (CLI) | payer MEDICARE, MEDICAID, SELFPAY ==
--- NOTE | ~2024-03-09 | US_ITS ---
US abdomen limited INDICATION: Liver cirrhosis. PROCEDURE: Realtime right upper abdominal ultrasound. COMPARISON: No prior studies for comparison. FINDINGS: The pancreas is normal without focal mass or pancreatic ductal dilation. Liver echotexture is diffusely heterogeneous and increased with nodular surface, consistent with cirrhosis. There is normal directional flow in the portal vein. Gallbladder is surgically absent. Common bile duct measures 6 mm. No sonographic Tompkins's sign. IMPRESSION: 1: Cirrhosis of the liver. Reviewed, dictated and finalized at location B. IMPRESSION: 1: Cirrhosis of the liver.
== END 2024-03-09 07:51 | disposition home or self-care (01) ==
PROVIDERS: PCP Family Medicine; Visit Provider Internal Medicine Gastroenterology
DX: K75.81 Nonalcoholic steatohepatitis (NASH) (principal); K74.60 Unspecified cirrhosis of liver
CPT/HCPCS: 76705

== ENCOUNTER 2024-03-24 13:37 | Outpatient (CLI) | payer MEDICARE, MEDICAID, SELFPAY ==
--- NOTE | ~2024-03-24 | MR_ITS ---
EXAMINATION: MR brain/brain stem wo con DATE: 03/24/2024 14:15 INDICATION: Personal history of other healed physical injury. TECHNIQUE: Magnetic resonance imaging (MRI) of the brain and brainstem was performed without intraven ous contrast. COMPARISON: Brain MRI 11/07/2019, CT 09/12/2023 FINDINGS: There are scattered areas of nonspecific increased T2-weighted signal intensity in the cere bral white matter. There is no intracranial hemorrhage, acute infarction, or abnormal intracranial ma ss lesion. The ventricles are normal in size. There are likely changes of ocular lens replacement jose guadalupe geries. There is mild mucosal thickening in the ethmoid sinuses. The mastoid air cells are normal. IMPRESSION: 1. Worsened mild nonspecific cerebral white matter disease, which likely represents chronic small ves pricila ischemic disease. Reviewed, dictated and finalized at location A. [facility] PATENT IMPRESSION: 1. Worsened mild nonspecific cerebral white matter disease, which likely repres ents chronic small vessel ischemic disease.
== END 2024-03-24 13:38 | disposition home or self-care (01) ==
PROVIDERS: PCP Family Medicine; Visit Provider Psychiatry & Neurology Neurology
DX: G31.84 Mild cognitive impairment of uncertain or unknown etiology (principal); Z87.828 Personal history of other (healed) physical injury and trauma; R90.82 White matter disease, unspecified
CPT/HCPCS: 70551

== ENCOUNTER 2024-08-12 13:53 | Outpatient (CLI) | payer MEDICARE, MEDICAID, SELFPAY ==
--- NOTE | ~2024-08-12 | US_ITS ---
EXAMINATION: US carotid duplex BI DATE: 08/12/2024 14:35 INDICATION: Cerebrovascular disease, unspecified. TECHNIQUE: Grayscale, color Doppler, and pulsed Doppler images of the cervical carotid arteries were obtained. The degree of vessel stenosis is placed in one of the following categories: normal, <50%, 5 0-69%, >=70% but less than near-occlusion, near-occlusion, or total occlusion. Note that percent sten osis relative to normal distal artery lumen diameter is indirectly measured from velocity measurement s as described by Zeeshan, et al. Radiology 2003; 229:340-346. COMPARISON: Ultrasound 05/01/2020 FINDINGS: RIGHT: The right common carotid artery (CCA) peak systolic velocity (PSV) is 69 cm/s. The right internal car otid artery (ICA) PSV is 67 cm/s. The right ICA end-diastolic velocity (EDV) is 21 cm/s. The right IC A/CCA PSV ratio is 1.0. Grayscale and color Doppler images yield an estimate of <50% diameter reducti on from plaque in the ICA. There is antegrade flow in the right vertebral artery. LEFT: The left CCA PSV is 56 cm/s. The left ICA PSV is 114 cm/s. The left ICA EDV is 30 cm/s. The left ICA/ CCA PSV ratio is 2.0. Grayscale and color Doppler images yield an estimate of <50% diameter reduction from plaque in the ICA. There is antegrade flow in the left vertebral artery. IMPRESSION: 1. <50% stenosis in the right internal carotid artery. 2. <50% stenosis in the left internal carotid artery. Reviewed, dictated and finalized at location A.
--- OUTSIDE RECORDS SUMMARY | 2024-08-12 14:47 | XMS_ITS | Clinical Summary ---
Author Organization [facility] Address [address] [place] [address] Care Team Providers Care Php Web Developer Name Role Phone Warren Jernigan MD Primary Care Provider [phone] [phone] Source Comments [facility],non-owned Affiliates and Associated Physician Practices is amultiple site organization consisting of ambulatory clinics and hospital sitesin [place], [place], [place] and [place]. This disclosure is being madepursuant to the Care Everywhere program and may not contain all information available regarding this patient. Last updated 18.[facility] Allergies Active Allergy Reactions Criticality Noted Date Comments Erythromycin Anaphylaxis High 06/09/2019 Medications * Be aware that medications may not be up to date on this document. Alwaysverify current medications with the patient. Medication Sig Dispensed Refills Start Date End Date Status albuterol HFA (Proventil; Ventolin; Proair) 108 (90 Base) MCG/ACT inhaler INHALE 2 PUFFS BY MOUTH EVERY 4 HOURS NEEDED FOR SHORTNESS OF BREATH FOR WHEEZING 05/21/2022 Activ e FLUoxetine (PROzac) 20 MG capsule Take 1 (one) capsule by mouth once daily 07/24/2022 Active Jardiance 25 MG tablet Take 1 (one) tablet by mouth once daily 06/22/2022 Active benztropine (Cogentin) 0.5 MG tablet Take 1 (one) tablet by mouth at bedtime 05/15/2022 Active carbidopa-levodopa (Sinemet) 25-100 MG tablet Take 1 (one) tablet by mouth 3 times daily 07/24/2022 Active gabapentin (Neurontin) 300 MG capsule Take 1 (one) capsule by mouth once daily 05/05/2022 Active Accu-Chek Maria E Plus test strip USE STRIP TO CHECK GLUCOSE THREE TIMES DAILY 02/13/2022 Active Levemir FlexPen pen INJECT 55 UNITS SUBCUTANEOUSLY ONCE DAILY IN THE MORNING AND 52 IN THE EVENING 07/16/2022 Active lamoTRIgine (LaMICtal) 150 MG tablet 08/06/2022 Active lovastatin (Mevacor) 10 MG tablet Take 1 (one) tablet by mouth once daily Active predniSONE (Deltasone) 20 MG tablet Specific dosage unknown 12/19/2021 Active pantoprazole EC (Protonix) 40 MG tablet Take 1 (one) tablet by mouth once daily 05/05/2022 Active primidone (Mysoline) 50 MG tablet Take 1 (one) tablet by mouth at bedtime 03/27/2022 Active Ozempic, 1 MG/DOSE, 4 MG/3ML pen 5 (five) mg every 7 days 07/08/2022 Active pioglitazone (Actos) 45 MG tablet 08/07/2022 Active cariprazine (Vraylar) 3 MG capsule Take 1 (one) capsule by mouth every 2 days Active Active Problems Problem Noted Date Diagnosed Date Parkinson's disease 08/12/2022 Overview (08/12/2022): Diagnosed about 2017, sinemet helps with tremors Arthritis 08/12/2022 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 Chirinos at [facility]. Type 2 diabetes 08/02/2022 Hypertension 08/02/2022 Hyperlipidemia 08/02/2022 Social History Tobacco Use Types Packs/Day Years Used Date Smoking Tobacco: Every Day Cigarettes Smokeless Tobacco: Never Tobacco Cessation:Ready to Q uit: Not Asked; Counseling Given: Not Answered Alcohol Use Standard Drinks/Week Comments Yes 0 (1 standard drink = 0.6 oz pure alcohol) occassional- 2 drinks per week- mixed drinks Sex and Gender Information Value Date Recorded Sex Assigned at Not on file Gender Identity Not on file Sexual Orientation Not on file Last Filed Vital Signs Vital Sign Reading Time Taken Comments Blood Pressure 159/53 02/16/2024 10:34 AM CDT Pulse 60 02/16/2024 10:34 AM CDT Temperature 37.2 C (99 F) 02/16/2024 10:34 AM CDT Respiratory Rate 18 02/16/2024 10:34 AM CDT Oxygen Saturation 98% 02/16/2024 10:34 AM CDT Inhaled Oxygen Concentration - - Weight 80.7 kg (178 lb) 02/16/2024 10:34 AM CDT Height 154.9 cm (5' 0.98 ) 02/16/2024 10:34 AM C DT Body Mass Index 33.65 02/16/2024 10:34 AM CDT Plan of Treatment Upcoming Encounters Date Type Department Care Team (Late st Contact Info) Description 02/07/2025 10:00 AM CDT Office Visit [facility] [address] [place] [address], [place] [id number] Brady Garcia MD [address] [place] [address] [place] [address] Health Maintenance Due Date Last Done Comments BONE DENSITY TESTING 1955 COLOGUARD (AGES 45-75) - COLON CA SCREENING 1955 COLON MONITORING 1955 COLONOSCOPY - COLON CA SCREENING 1955 CT COLONOGRAPHY - COLON CA SCREENING 1955 Colorectal Cancer Screening 1955 FIT - COLON CA SCREENING 1955 FLEX SIG - COLON CA SCREENING 1955 MAMMOGRAM 1955 DTAP/TDAP/TD VACCINES (1 - Tdap) 1976 PNEUMOCOCCAL VACCINE 50+ (1 of 2 - PCV) 1976 ZOSTER VACCINE (1 of 2) 2007 HEPATITIS B VACCINE (1 of 3 - Risk 3-dose series) 2017 Respiratory Syncytial Virus (RSV) Vaccine Pt: or over 60 yrs (1 - Risk 60-74 years 1-dose series) 2017 DIABETES RETINOPATHY SCREENING 08/02/2022 DIABETES-FOOT EXAM WITH MONOFILAMENT 08/02/2022 DIABETES-HGB A1C 08/02/2022 COVID-19 VACCINE ( - season) 2024 INFLUENZA VACCINE (#1) 2024 DEPRESSION SCREENING 05/19/2024 DIABETES - URINE PROTEIN SCREENING 05/19/2024 MEDICARE AWV CALENDAR YEAR 2024 DIABETES-SERUM CREATININE 02/22/20252023, 03/12/2023, 10/29/2022, Additional history exists HEPATITIS C SCREENING Completed 08/12/2022 HIB VACCINE Aged Out No longer eligi ble based on patient's age to complete this topic HPV VACCINE Aged Out No longer eligi ble based on patient's age to complete this topic MENINGOCOCCAL (Group B) VACCINE SHARED DECISION-MAKING Aged Out No longer eligible based on patient's age to complete this topic MENINGOCOCCAL GROUPS A/C/Y/W VACCINE Aged Out No longer eligible based on patient's age to complete this topic Goals Goal Patient Goal Type Associated Problems Recent Progress Patient-Stated? Author Medication Management General On track( 024 10:38 AM CDT) Pooja Pollack, RN Note: Expected end date: ongoing Interventions: Take all medications as prescribed Let your doctor know right away about any changes in your medications Make sure to request a refill of your medication at least one week prior to your last dose Procedures Procedure Name Priority Date/Time Associated Diagnosis Comments COMPREHENSIVE METABOLIC PANEL Routine 02/23/2024 9:31 AM CDT Liver cirrhosis secondary to MASH HEPATITIS C ANTIBODY Routine 08/12/2022 12:39 PM CDT Liver cirrhosis secondary to TAY from Last 3 Months or Most Recently Relevant to Health Maintenance Results * (ABNORMAL) COMPREHENSIVE METABOLIC PANEL (02/23/2024 9:31 AM CDT) Glucose 86 70 - 99 mg/dL [facility] INSURANCE BILL BUN 6(L) 8 - 27 mg/dL [facility] INSURANCE BILL Creatinine 0.78 0.57 - 1.00 mg/dL [facility] INSURANCE BILL eGFR by CKD-EPI 84 >59 mL/min/1.7 3 [facility] INSURANCE BILL BUN/Creatinine Ratio 8(L) 12 - 28 [facility] INSURANCE BILL Sodium 141 134 - 144 mmol/L [facility] INSURANCE BILL Potassium 4.1 3.5 - 5.2 mmol/L [facility] INSURANCE BILL Chloride 101 96 - 106 mmol/L [facility] INSURANCE BILL CO2 26 20 - 29 mmol/L [facility] INSURANCE BILL Calcium 9.7 8.7 - 10.3 mg/dL [facility] INSURANCE BILL Protein Total 6.5 6.0 - 8.5 g/dL [facility] INSURANCE BILL Albumin 4.2 3.9 - 4.9 g/dL [facility] INSURANCE BILL Globulin Total 2.3 1.5 - 4.5 g/dL [facility] INSURANCE BILL Bilirubin Total 0.9 0.0 - 1.2 mg/dL [facility] INSURANCE BILL Alkaline Phosphatase 125(H) 44 - 121 IU/L [facility] INSURANCE BILL AST 16 0 - 40 IU/L [facility] INSURANCE BILL ALT 8 0 - 32 IU/L [facility] INSURANCE BILL Blood BLOOD SPECIMEN / Unknown 02/23/2024 9:31 AM CDT 02/23/2024 Narrative [facility] INSURANCE BILL - 02/24/2024 8:19 AM CDT Performed at: [address] [id number] Juke Box Servicer: Ryan Randall PhD, Phone: [phone] Brady Garcia MD LAB - CHEM ISTRY ORDERABLES [facility] INSURANCE BILL [address] [place] [address] * HEPATITIS C ANTIBODY (08/12/2022 12:39 PM CDT) Pathologist [facility] Hepatitis C Antibody Non-react sarah Non-reac tive 08/12/2022 1:47 PM CDT [facility] Comment:Hepatitis C Antibody screen indicates no serologic evidence of past or current infection with Hepatitis C Virus. Patients with unexplained liver disease who are immunocompromised or suspected of having acute Hepatitis C infection may benefit from Nucleic Acid Test (ARLENE) for Hepatitis C Viral RNA to confirm Hepatitis C status. Blood BLOOD SPECIMEN / Unknown Lab Venipuncture / Unknown 08/12/2022 12:39 PM CDT 08/12/2022 12:58 PM CDT Brady Garcia MD LAB - CHEM ISTRY ORDERABLES [facility] [address] [place] [address], [facility] [phone] from Last 3 Months or Most Recently Relevant to Health Maintenance Care Teams Php Web Developer Relationship Specialty Start Date End Date Warren Jernigan MD [address] [place] [id number] PCP - General Family Medicine 03/10/23
== END 2024-08-12 13:54 | disposition home or self-care (01) ==
PROVIDERS: PCP Family Medicine; Visit Provider Psychiatry & Neurology Neurology
DX: I67.9 Cerebrovascular disease, unspecified (principal); I65.23 Occlusion and stenosis of bilateral carotid arteries
CPT/HCPCS: 93880

== ENCOUNTER 2024-08-16 09:54 | Outpatient (CLI) | payer MEDICARE, MEDICAID, SELFPAY ==
--- NOTE | ~2024-08-16 | CT_ITS ---
CT Scan of the Chest without Contrast: Clinical Indication: Lung cancer screening, nicotine dependence Technique: Contiguous sections were acquired throughout the chest without intravenous contrast. Dose reduction technique was used on this scan by utilizing automated exposure control and iterative recon struction technique. The dose-length product (DLP) was 125.64 mGy-cm. COMPARISON: 07/01/2023 Findings: There is no evidence of any significant mediastinal, hilar or axillary lymphadenopathy. There are ext ensive atherosclerotic calcifications of the coronary arteries. There is no evidence of pleural or pericardial effusion. The lungs are clear, aside from small calcified left upper lobe granuloma. Images through the upper abdomen reveal no abnormalities. Impression: Lung RADS 2: Benign appearance. 12 month follow-up screening CT advised. Reviewed, dictated and finalized at [facility]. Impression: Lung RADS 2: Benign appearance. 12 month follow-up screening CT advised.
--- OUTSIDE RECORDS SUMMARY | 2024-08-16 10:58 | XMS_ITS | Clinical Summary ---
Author Organization [facility] [employer] Address [address] [place] [address] Care Team Providers Care Journeyman Mechanic Name Role Phone Warren Jernigan MD Primary Care Provider [phone] [phone] Source Comments [facility],non-owned Affiliates and Associated Physician Practices is amultiple site organization consisting of ambulatory clinics and hospital sitesin [place], [place], [place] and [place]. This disclosure is being madepursuant to the Care Everywhere program and may not contain all information available regarding this patient. Last updated 18.[facility] [employer] Allergies Active Allergy Reactions Criticality Noted Date [...] gastrectomy about [address] Chirinos at [facility]. Type 2 diabetes 08/02/2022 Hypertension 08/02/2022 [...] Office Visit [facility] [address] [place] [address], [place] [id number] Brady Garcia MD [address] [place] [address] [place] [address] Health Maintenance Due Date Last Done Comments [...] 02/24/2024 8:19 AM CDT Performed at: [address] [id number] Environment Coordinator: Ryan Randall PhD, Phone: [phone] Brady Garcia MD LAB - CHEM ISTRY ORDERABLES [facility] INSURANCE BILL [address] [place] [address] * HEPATITIS C ANTIBODY (08/12/2022 12:39 PM CDT) Pathologist [facility] Hepatitis C Antibody Non-react sarah Non-reac tive 08/12/2022 1:47 PM CDT [facility] Comment:Hepatitis C Antibody screen indicates [...] Garcia MD LAB - CHEM ISTRY ORDERABLES [facility] [address] [place] [address], [facility] [phone] from Last 3 Months or Most Recently Relevant to Health Maintenance Care Teams Journeyman Mechanic Relationship Specialty Start Date End Date Warren Jernigan MD [address] [place] [phone] PCP - General Family Medicine 03/10/23
== END 2024-08-16 09:55 | disposition home or self-care (01) ==
PROVIDERS: PCP Family Medicine; Visit Provider Family Medicine
DX: Z12.2 Encounter for screening for malignant neoplasm of respiratory organs (principal); Z87.891 Personal history of nicotine dependence
CPT/HCPCS: 71271

== ENCOUNTER 2024-09-08 06:56 | Outpatient (CLI) | payer MEDICARE, MEDICAID, SELFPAY ==
--- NOTE | ~2024-09-08 | US_ITS ---
Limited Abdominal Sonogram: Real-time sonographic imaging of the right upper quadrant was performed. Clinical History: Liver cirrhosis Findings: The liver appears echogenic with no evidence of mass lesion or bile duct dilatation. Main portal vein demonstrates normal direction of flow. The gallbladder is absent, compatible prior cholec ystectomy. The common bile duct measures 3 mm. The visualized pancreas, aorta, and IVC are unremarka ble. Impression: Diffuse fatty infiltration of liver. Reviewed, dictated and finalized at location . Impression: Diffuse fatty infiltration of liver.
--- OUTSIDE RECORDS SUMMARY | 2024-09-08 07:00 | XMS_ITS | Clinical Summary ---
Author Organization [facility] [employer] Address [address] [place] [address] Care Team Providers Care Ex Assistant/Program Director Name Role Phone Warren Jernigan MD Primary Care Provider [phone] [phone] Source Comments [facility],non-owned Affiliates and Associated Physician Practices is amultiple site organization consisting of ambulatory clinics and hospital sitesin [place], [place], [place] and [place]. This disclosure is being madepursuant to the Care Everywhere program and may not contain all information available regarding this patient. Last updated 18.[facility] [employer] Allergies Active Allergy Reactions Criticality Noted Date Comments Erythromycin Anaphylaxis High 06/09/2019 Medications * Be aware that medications may not be up to date on this document. Alwaysverify current medications with the patient. albuterol HFA (Proventil; Ventolin; Proair) 108 (90 Base) MCG/ACT inhaler INHALE 2 PUFFS BY MOUTH EVERY 4 HOURS NEEDED FOR SHORTNESS OF BREATH FOR WHEEZING 3 Active FLUoxetine (PROzac) 20 MG capsule Take 1 (one) capsule by mouth once daily 3 Active Jardiance 25 MG tablet Take 1 (one) tablet by mouth once daily 3 Active benztropine (Cogentin) 0.5 MG tablet Take 1 (one) tablet by mouth at bedtime 2 Active carbidopa-levo dopa (Sinemet) 25-100 MG tablet Take 1 (one) tablet by mouth 3 times daily 3 Active gabapentin (Neurontin) 300 MG capsule Take 1 (one) capsule by mouth once daily 2 Active Accu-Chek Maria E Plus test strip USE STRIP TO CHECK GLUCOSE THREE TIMES DAILY 2 Active Levemir FlexPen pen INJECT 55 UNITS SUBCUTANEOUSLY ONCE DAILY IN THE MORNING AND 52 IN THE EVENING 3 Active lamoTRIgine (LaMICtal) 150 MG tablet 3 Active lovastatin (Mevacor) 10 MG tablet Take 1 (one) tablet by mouth once daily Active predniSONE (Deltasone) 20 MG tablet Specific dosage unknown 2 Active pantoprazole EC (Protonix) 40 MG tablet Take 1 (one) tablet by mouth once daily 2 Active primidone (Mysoline) 50 MG tablet Take 1 (one) tablet by mouth at bedtime 2 Active Ozempic, 1 MG/DOSE, 4 MG/3ML pen 5 (five) mg every 7 days 3 Active pioglitazone (Actos) 45 MG tablet 3 Active cariprazine (Vraylar) 3 MG capsule Take [...] gastrectomy about [address] Chirinos at [facility]. Type 2 diabetes 08/02/2022 Hypertension 08/02/2022 Hyperlipidemia 08/02/2022 Social History Tobacco Use Types Packs/Day Years Used Date Smoking Tobacco: Every Day Cigarettes Smokeless Tobacco: Never Tobacco Cessation:Ready to Q uit: Not Asked; Counseling Given: Not Answered Alcohol Use Standard Drinks/Week Comments Yes 0 (1 standard drink = 0.6 oz pure alcohol) occassional- 2 drinks per week- mixed drinks Comments Unknown Sex and Gender Information Value Date Recorded Sex Assigned at Not on file Legal Sex Female 10:42 AM CDT Gender Identity Not on file Sexual Orientation [...] Office Visit [facility] [address] [place] [address], [place] [address] Brady Garcia MD [address] [place] [address] [place] [address] Health Maintenance Due Date Last Done Comments [...] 08/02/2022 COVID-19 VACCINE ( - season) 2024 DEPRESSION SCREENING 05/19/2024 DIABETES - URINE PROTEIN SCREENING 05/19/2024 MEDICARE AWV CALENDAR YEAR 2024 INFLUENZA VACCINE (Season Ended) 2025 DIABETES-SERUM CREATININE 02/22/20252023, 03/12/2023, 10/29/2022, Additional history [...] COMPREHENSIVE METABOLIC PANEL (02/23/2024 9:31 AM CDT) Pathologist [facility] Glucose 86 70 - 99 mg/dL [facility] [...] 02/24/2024 8:19 AM CDT Performed at: 01 - [address] [id number] Manager Utilization Review: Ryan Randall PhD, Phone: [phone] Brady Garcia MD LAB - CHEMISTRY OR DERABLES Final Result [facility] INSURANCE BILL [address] [place] [address] * HEPATITIS C ANTIBODY (08/12/2022 12:39 PM CDT) Hepatitis C Antibody Non-react sarah Non-reac tive 08/12/2022 1:47 PM CDT [facility] Comment:Hepatitis C Antibody screen [...] PM CDT Brady Garcia MD LAB - CHEMISTRY OR DERABLES Final Result [facility] [address] [place] [address], [facility] [phone] from Last 3 Months or Most Recently Relevant to Health Maintenance Insurance [facility] MANAGED MEDICARE ADV Care Teams Ex Assistant/Program Director Relationship Specialty Start Date End Date Warren Jernigan MD [address] [place] [phone] PCP - General Family Medicine 03/10/23
== END 2024-09-08 06:57 | disposition home or self-care (01) ==
PROVIDERS: PCP Family Medicine; Visit Provider Internal Medicine Gastroenterology
DX: K75.81 Nonalcoholic steatohepatitis (NASH) (principal); K74.60 Unspecified cirrhosis of liver
CPT/HCPCS: 76705

== ENCOUNTER 2024-09-21 09:22 | Outpatient (CLI) | payer MEDICARE, MEDICAID, SELFPAY ==
--- NOTE | ~2024-09-21 | MM_ITS ---
EXAMINATION: MM screening sonal BI w adrián HISTORY: Screening TECHNIQUE: Craniocaudal and mediolateral oblique 3-D tomosynthesis images were obtained and synthetic 2-D images were generated. CAD analysis was submitted and interpreted. COMPARISON: Comparison to multiple prior studies sequentially, with oldest reviewed study dated 11/30. BREAST PARENCHYMAL COMPOSITION: Not dense: There are scattered areas of fibroglandular density. FINDINGS: There is no evidence of suspicious mass, calcification, or architectural distortion to sugg est malignancy in either breast. There has been no suspicious interval change. IMPRESSION: 1. No mammographic evidence of malignancy. 2. Recommend routine screening mammography in one year. BI-RADS Category 1: Negative Reviewed, dictated and finalized at location A.
--- OUTSIDE RECORDS SUMMARY | 2024-09-21 09:54 | XMS_ITS | Clinical Summary ---
Author Organization [facility] [employer] Address [address] [place] [address] Care Team Providers Care Garage Manager Name Role Phone Warren Jernigan MD Primary Care Provider [phone] [phone] Source Comments [facility],non-owned Affiliates and Associated Physician Practices is amultiple site organization consisting of ambulatory clinics and hospital sitesin [place], [place], [place] and [place]. This disclosure is being madepursuant to the Care Everywhere program and may not contain all information available regarding this patient. Last updated 18.[facility] Allergies Active Allergy Reactions Criticality Noted Date [...] gastrectomy about [address] Chirinos at [facility]. Type 2 diabetes 08/02/2022 Hypertension [...] Office Visit [facility] [address] [place] [address], [place] [address] Brady Garcia MD [address] [place] [address] [place] [address] Health Maintenance Due Date Last Done Comments [...] METABOLIC PANEL (02/23/2024 9:31 AM CDT) Pathologist [facility] Glucose 86 70 - 99 mg/dL [facility] [...] 8:19 AM CDT Performed at: 01 - [address] [id number] Tool Polishing Machine Operator: Ryan Randall PhD, Phone: [phone] Brady Garcia MD LAB - CHEMISTRY OR DERABLES Final Result [facility] INSURANCE BILL [address] [place] [address] * HEPATITIS C ANTIBODY (08/12/2022 12:39 PM CDT) Hepatitis C Antibody Non-react sarah Non-reac tive 08/12/2022 1:47 PM CDT [facility] Comment:Hepatitis C Antibody screen indicates [...] LAB - CHEMISTRY OR DERABLES Final Result [facility] [address] [place] [address], [facility] [phone] from Last 3 Months or Most Recently Relevant to Health Maintenance Insurance [facility] MANAGED MEDICARE ADV Care Teams Garage Manager Relationship Specialty Start Date End Date Warren Jernigan MD [address] [place] [phone] PCP - General Family Medicine 03/10/23
== END 2024-09-21 09:23 | disposition home or self-care (01) ==
PROVIDERS: PCP Family Medicine; Visit Provider Family Medicine
DX: Z12.31 Encounter for screening mammogram for malignant neoplasm of breast (principal)
CPT/HCPCS: 77063; 77067

== ENCOUNTER 2024-10-06 09:30 | Outpatient (CLI) | payer MEDICARE, MEDICAID, SELFPAY ==
--- NOTE | ~2024-10-06 | XR_ITS ---
Left Knee Technique: AP, lateral, and sunrise views were obtained. Clinical History: Arthroplasty COMPARISON: 11/26/2023 Findings: No fracture or dislocation is seen. Left knee arthroplasty is unchanged. Soft tissues are u nremarkable. No joint effusion is seen. Impression: No acute abnormality. Stable left knee arthroplasty. Reviewed, dictated and finalized at location . Impression: No acute abnormality. Stable left knee arthroplasty.
--- OUTSIDE RECORDS SUMMARY | 2024-10-06 10:16 | XMS_ITS | Clinical Summary ---
Author Organization [facility] [employer] Address [address] [place] [address] Care Team Providers Care Automotive Glazier Name Role Phone Warren Jernigan MD Primary Care Provider [phone] Source Comments [facility],non-owned Affiliates and Associated Physician Practices is amultiple site organization consisting of ambulatory clinics and hospital sitesin [place], [place], [place] and [place]. This disclosure is being madepursuant to the Care Everywhere program and may not contain all information available regarding this patient. Last updated 18.[facility] [employer] Allergies Active Allergy Reactions Criticality Noted Date [...] gastrectomy about [address] Chirinos at [facility]. Type 2 diabetes 08/02/2022 Hypertension 08/02/2022 Hyperlipidemia [...] Office Visit [facility] [address] [place] [address], [place] [address] Brady Garcia MD [address] [place] [address] [place] [address] Health Maintenance Due Date Last Done Comments [...] PANEL (02/23/2024 9:31 AM CDT) Pathologist [facility] Glucose 86 70 - 99 mg/dL [facility] [...] 8:19 AM CDT Performed at: 01 - [address] [id number] Airline Reservation Agent: Ryan Randall PhD, Phone: [phone] Brady Garcia MD LAB - CHEMISTRY OR DERABLES Final Result [facility] INSURANCE BILL [address] [place] [address] * HEPATITIS C ANTIBODY (08/12/2022 12:39 PM CDT) Hepatitis C Antibody Non-react sarah Non-reac tive 08/12/2022 1:[address] [facility] Comment:Hepatitis C Antibody screen indicates [...] LAB - CHEMISTRY OR DERABLES Final Result [facility] [address] [place] [address], [facility] [phone] from Last 3 Months or Most Recently Relevant to Health Maintenance Insurance [facility] MANAGED MEDICARE ADV Care Teams Automotive Glazier Relationship Specialty Start Date End Date [place] Jernigan MD [address] [place] [phone] PCP - General Family Medicine 03/10/23
== END 2024-10-06 09:31 | disposition home or self-care (01) ==
PROVIDERS: PCP Family Medicine; Visit Provider Orthopaedic Surgery
DX: Z96.652 Presence of left artificial knee joint (principal)
CPT/HCPCS: 73562

== ENCOUNTER 2024-10-27 08:20 | Outpatient (CLI) | payer MEDICARE, MEDICAID, SELFPAY ==
--- NOTE | ~2024-10-27 | CT_ITS ---
EXAMINATION: CT brain wo con DATE: 10/27/2024 08:37 INDICATION: Headache TECHNIQUE: Computed tomography (CT) of the head was performed without intravenous contrast. Sagittal and coronal reconstructions were performed. The mA was adjusted according to patient size. Iterative reconstruction technique was employed. The dose-length product was 529.67 mGy-cm. COMPARISON: head CT dated and brain MR dated 03/24/2024 FINDINGS: No acute intracranial hemorrhage, acute infarction or abnormal extra axial fluid collection. There is mild scattered white matter hypoattenuation consistent with chronic small vessel ischemic disease. Ventricles are normal and symmetric. No mass/mass effect. Changes of bilateral intraocular lens repla cement. The orbits, paranasal sinuses and mastoid air cells are normal. IMPRESSION: 1. No acute intracranial process. 2. Mild scattered nonspecific cerebral white matter hypoattenuation consistent with chronic small ves pricila ischemic disease. Reviewed, dictated and finalized at location A. IMPRESSION: 1. No acute intracranial process. 2. Mild scattered nonspecific cerebral white matter hypoattenuation consistent with chronic small vessel ischemic disease.
--- OUTSIDE RECORDS SUMMARY | 2024-10-27 08:34 | XMS_ITS | Clinical Summary ---
Author Organization [facility] [employer] Address [address] [address] Care Team Providers Care Inspector Packager Name Role Phone Warren Jernigan MD Primary Care Provider [phone] Source Comments [facility],non-owned Affiliates and Associated Physician Practices is amultiple site organization consisting of ambulatory clinics and hospital sitesin [place], [place], [place] and [place]. This disclosure is being madepursuant to the Care Everywhere program and may not contain all information available regarding this patient. Last updated 18.[facility] [employer] Allergies Active Allergy Reactions Criticality Noted Date [...] gastrectomy about [address] Chirinos at [facility]. Type 2 diabetes 08/02/2022 Hypertension 08/02/2022 [...] 10:34 AM CDT Height 154.9 cm (5' 0.98) 02/16/2024 10:34 AM C DT Body Mass Index 33.65 02/16/2024 10:34 AM CDT Plan of Treatment Upcoming Encounters Date Type Department Care Team (Late st Contact Info) Description 02/07/2025 10:00 AM CDT Office Visit [facility] [address] [place] [address], [place] [address] Brady Garcia MD [address] [place] [address] [place] [address] Health Maintenance Due Date Last Done Comments [...] 8:19 AM CDT Performed at: 01 - [address] [id number] Corrugator Machine Operator: Ryan Randall PhD, Phone: [phone] Brady Garcia MD LAB - CHEMISTRY OR DERABLES Final Result [facility] INSURANCE BILL [address] [place] [address] * HEPATITIS C ANTIBODY (08/12/2022 12:39 PM CDT) Hepatitis C Antibody Non-react sarah Non-reac tive 08/12/2022 1:47 PM CDT [facility] Comment:Hepatitis C Antibody screen [...] LAB - CHEMISTRY OR DERABLES Final Result [facility] [address] [place] [address], [facility] [phone] from Last 3 Months or Most Recently Relevant to Health Maintenance Insurance [facility] MANAGED MEDICARE ADV Care Teams Inspector Packager Relationship Specialty Start Date End Date Warren Jernigan MD [address] [place] [phone] PCP - General Family Medicine 03/10/23
== END 2024-10-27 08:21 | disposition home or self-care (01) ==
PROVIDERS: PCP Family Medicine; Visit Provider Nurse Practitioner Family
DX: R51.9 Headache, unspecified (principal); R90.82 White matter disease, unspecified
CPT/HCPCS: 70450